=== PATIENT | female | born 1945 | race Caucasian/White ===

== ENCOUNTER 2017-04-19 10:40 | Inpatient (IN) | payer MEDICARE, OTHER ==
[2017-04-19] VITALS (10 sets, daily range): BP systolic 153–214; BP diastolic 60–112; PULSE 52–87; RESP 17–26; O2SAT 92–99
[~2017-04-19] VITALS: Ht 162.6 cm; Wt 78.7 kg
[~2017-04-19 10:40] MED LIST: ASPI81TA3 PO; CREST10T PO; LEVO75TA4 PO; LISI-567 PO; METO-272 PO; OMEP-113 PO
[2017-04-19] MEDS ORDERED: CYAN50008 PO (11:06)
[2017-04-19] MEDS ORDERED: LISI40TA PO (11:06)
[2017-04-19] MEDS ORDERED: POLY17PO6 PO (11:06)
[2017-04-19] MEDS ORDERED: CHOL200047 PO (11:06)
[2017-04-19] MEDS ORDERED: METF-495 PO (11:06)
[2017-04-19] MEDS ORDERED: FLUT15.88 NS (11:06)
--- NOTE | 2017-04-19 11:19 | NUR ---
ZECHARIAH signed by pt
[2017-04-19 11:34] LABS: BASOPHILS % (AUTO) 0.5 % (0-3); EOSINOPHILS % (AUTO) 2.3 % (0-5); MONOCYTES % (AUTO) 5.6 % (4-12); Mean Corpuscular Hemoglobin 29.6 pg (27.0-35.0); Mean Corpuscular Volume 88.4 fL (81-100); NEUTROPHILS % (AUTO) 38.4 % (40-74); Platelet Count 268 bil/L (150-400)
--- NOTE | 2017-04-19 11:34 | ED.REPORT ---
HPI-General Illness Date of Service Apr 19, 2017 ED Provider: Bhavesh Matson MD A 72 year old female with a history of CAD s/ p CABG (2010), type II diabetes mellitus, recurrent GI bleeds, hypertension, hypothyroidism, atrial fibrillation , and GERD presents to the ED via EMS complaining of N/V/D that began at 0900 this morning. Associated symptoms include generalized weakness, hematochezia, chills, diaphoresis, and abdominal burning. She reports similar symptoms previously but this episode is worse. She has been evaluated for her GI bleeds previously but a clear cause was not identified. Patient denies any SOB, chest pain, or focalized weakness. She was prescribed antibiotics for a bladder infection 3 weeks ago. Patient is not currently on Coumadin or Xarelto. She denies any recent travel or recent sick contacts. Nursing Notes Stated Complaint: NAUSEA,VOMITTING,DIARRHEA Chief Complaint: General Complaint Nursing Notes Reviewed: Yes Allergies: Coded Allergies: No Known Allergies (Verified , 04/19/17) Scheduled Aspirin Chew (Aspirin Chew) 81 Mg Tab.chew 81 MG PO DAILY Cholecalciferol (Vitamin D3) (Vitamin D3) 2,000 Unit Capsule 2,000 UNIT PO DAILY Cyanocobalamin (Vitamin B-12) (Vitamin B12) 5,000 Mcg Tab.rapdis 5,000 MCG PO DAILY Levothyroxine (Levothyroxine) 75 Mcg Tablet 75 MCG PO AM Lisinopril (Lisinopril) 40 Mg Tablet 40 MG PO DAILY Metformin ER (Metformin ER) 500 Mg Tablet 500 MG PO DAILYWD Metoprolol Succinate ER (Metoprolol Succinate ER) 50 Mg Tab.er.24h 50 MG PO AM Omeprazole (Omeprazole) 20 Mg Capsule.dr 20 MG PO DAILY Rosuvastatin Calcium (Crestor) 10 Mg Tablet 5 MG PO HS Scheduled PRN Fluticasone Propionate (Fluticasone Propionate) 50 Mcg/Actuation Russell.susp 15.8 ML NS PRN nasal congestion Polyethylene Glycol 3350 (Miralax) 17 Gm Powd.pack 17 GM PO DAILY PRN PRN For Constipation General Time Seen by MD: 11:33 Chief Complaint Vomiting Hx Obtained From: Patient Arrived By: Ambulance Sudden in Onset?: No Onset Occurred: 1 - 4 hours ago Symptom Duration: Since onset Location: : Abdomen Quality: Burning Radiation: : Does not radiate Severity: Current: Mild Severity: Maximum: Mild Associated with: Reports: Diaphoresis, Nausea, Vomiting Pertinent Negative: Pt denies other symptoms Recent Healthcare: No recent doctor visit, No recent hospitalization Past Medical History Past Medical History 1. CAD s/p 2V CABG in 07/[address] [facility] [address] Don 2. Diabetes mellitus type II, diet controlled 3. H/o elevated LFTs on atorvastatin 4. Osteoarthritis 5. Hypertension 6. Osteopenia 7. Mild aortic stenosis 8. Afib, paroxysmal 9. Anxiety/Depression 10. Hypothyroidism 11. GERD Past Surgical History Double bypass - three years ago Cholecystectomy Hysterectomy Cataract surgery Knee surgery Hysterectomy Family History Noncontributory Smoking History Never Smoker Social History Drug Use: Denies drug use Other Social History: Good social support, , Local resident Ambulatory Status Independent Review of Systems Full Review of Systems Constitutional: Reports: Chills, Weakness - generalized Respiratory: Denies: Shortness of breath Cardiovascular: Denies: Chest pain GI: Reports: Abdominal pain (burning), Diarrhea, Hematochezia, Nausea, Vomiting Skin: Reports Diaphoresis Neurologic: Reports: Lightheaded Complete sys rev & neg: except as marked. Physical Exam Nursing note and vitals reviewed. Constitutional: Well-developed, well-nourished. Not diaphoretic. Head: Normocephalic and atraumatic. Mouth/Throat: Mucous membranes dry. No oropharyngeal exudate. Eyes: EOM are normal. Pupils are equal, round, and reactive to light. Neck: Supple, no tracheal deviation. Cardiovascular: Normal rate, regular rhythm. Equal and intact distal pulses throughout. Pulmonary/Chest: Effort normal and breath sounds normal. No respiratory distress. Abdominal: Soft. No distension. Diffuse abdominal tenderness without rebound or guarding. Normal bowel sounds. Musculoskeletal: Range of motion grossly intact, moving all extremities. No edema appreciated. Neurological: AOx3. Grossly nonfocal exam. Strength and sensation intact and equal to bilateral upper and lower extremities. Skin: Warm and dry, no rashes or pallor appreciated. Psychiatric: Appropriate mood and affect. Behavior appears normal. Rectum: [employer] present. No external hemorrhoids. Minimal gross blood present. No masses in rectal vault. Occult heme positive. Vital Signs Vital Signs Date Time Temp Pulse Resp B/P Pulse Ox O2 Delivery O2 Flow Rate FiO2 04/19/17 16:19 75 19 173/69 92 Room Air 04/19/17 14:09 52 17 169/65 99 Room Air 04/19/17 12:34 67 18 167/60 98 Room Air 04/19/17 10:52 36.5 62 26 153/112 99 Room Air Initial VS: Reviewed Interpretation & Diagnostics Lab Results Interpretation Result Diagram: 04/19/17 1243 04/19/17 1243 Test 04/19/17 12:43 04/19/17 13:55 White Blood Count 12.3th/mm3 (3.8-10.1) Red Blood Count 4.46mil/mm3 (3.90-5.20) Hemoglobin 13.1g/dL (12.0-15.6) Hematocrit 40.2% (35.0-46.0) Mean Corpuscular Volume 90.1fL (81-100) Mean Corpuscular Hemoglobin 29.4pg (27.0-35.0) Mean Corpuscular Hemoglobin Concent 32.6% (32.0-37.0) Red Cell Distribution Width 13.3% (12.3-15.4) Platelet Count 177bil/L (150-400) Neutrophils (%) (Auto) 81.2% (40-74) Lymphocytes (%) (Auto) 11.1% (14-46) Monocytes (%) (Auto) 6.4% (4-12) Eosinophils (%) (Auto) 0.8% (0-5) Basophils (%) (Auto) 0.2% (0-3) Prothrombin Time 10.4sec (8.1-12.5) Prothromb Time International Ratio 0.97ratio Sodium Level 140mEq/L (134-144) Potassium Level 4.5mEq/L (3.5-5.2) Chloride Level 107mEq/L (97-108) Carbon Dioxide Level 17mmol/L (18-29) Blood Urea Nitrogen 16mg/dL (8-27) Creatinine 0.83mg/dL (0.57-1.00) Estimat Glomerular Filtration Rate 97mL/min (>59) Glucose Level 121mg/dL (60-99) Lactic Acid Level 3.0mmol/L (0.4-2.0) Calcium Level 9.3mg/dL (8.5-10.1) Magnesium Level 1.8mg/dL (1.6-2.6) Total Bilirubin 0.4mg/dL (0.0-1.2) Aspartate Amino Transf (AST/SGOT) 19U/L (0-50) Alanine Aminotransferase (ALT/SGPT) 13U/L (0-32) Alkaline Phosphatase 108U/L (25-165) Total Protein 6.9g/dL (6.4-8.4) Albumin 3.8g/dL (3.4-5.0) Lipase 68U/L (13-60) Urine Color Yellow (YELLOW) Urine Appearance Clear (CLEAR,HAZY) Urine pH 5.5 (5.0-8.0) Urine Specific [place] <1.005 (1.003-1.035) Urine Protein Negativemg/dL (NEG,TRACE) Urine Glucose (UA) Negativemg/dL (NEGATIVE) Urine Ketones Negativemg/dL (NEGATIVE) Urine Occult Blood Trace (NEGATIVE) Urine Nitrite Negative (NEGATIVE) Urine Bilirubin Negative (NEGATIVE) Urine Urobilinogen Normalmg/dL (NORMAL) Urine Leukocyte Esterase Negative (NEGATIVE) Urine RBC 0-2/hpf (0-2) Urine WBC 0-5/hpf (0-5) Urine Epithelial Cells Few/hpf (NONE-MOD) Urine Crystals None seen (NONE SEEN) Urine Bacteria Few/hpf (NONE-FEW) Urine Hyaline Casts None/lpf (NONE) Urine Granular Casts None seen (NONE SEEN) Urine Waxy Casts None seen (NONE SEEN) Urine Red Blood Cell Casts None seen (NONE SEEN) Urine White Blood Cell Casts None seen (NONE SEEN) Urine Mucus None seen (None Seen) Urine Trichomonas None seen (NONE SEEN) Urine Yeast None (NONE SEEN) Urinalysis Comment None Urine Culture Reflexed Not indicated ECG Interpretation ECG Interpretation: Sinus Rhythm Rate 66 Probable left atrial enlargement Time: 14:01 Interpreted by: ED physician Normal ECG Interpretation: No change from prior ECGs (11/22/14) X-Ray Abdominal Interpretation IMPRESSION: The appearance of the bowel gas pattern is abnormal but more consistent with diarrhea evaluate for obstruction. No dilated loops are seen. Dictated by: Jimmy Arnett M.D. on 04/19/2017 at 13:23 Interpretation / Wet Read by: Interpret - Radiologist CT Abd / Pelvis Interpretation IMPRESSION: 1. Abnormal transverse and descending colon consistent with colitis. There are scattered diverticula but no diverticulitis. Dictated by: Jimmy Arnett M.D. on 04/19/2017 at 15:09 Study type: Abdominal CT IV contrast, Abdom CT oral contrast Interpretation / Wet Read by: Interpret - Radiologist Re-Eval/Medical Decision Med Decision/Clinical Course In summary, 72-year-old female with a complex past medical history presenting to the ED for evaluation of vomiting and diarrhea since earlier this morning, now with bright red blood per rectum. Hemoglobin has dropped while in the ED from 14.8 to 13.1, though pressures ok. She does have an elevated lactic acid, however pain does not seem to be postprandial, pain is mild does not seem consistent with mesenteric ischemia at this time, though she does have a history of atrial fibrillation. CT scan shows colitis without any other clear etiology for the patient's pain. A C. difficile PCR was sent and pending. While she does have a strong cardiac history, she is not complaining of any chest pain, chest pressure, or dyspnea whatsoever. Given intractable symptoms, bright red blood per rectum, and mild drop in hemoglobin (which may or may not be significant) plan admission for further evaluation and management. Patient agreeable to the plan as stated, no further questions. Time of Eval: 13:59 Re-Evaluation/Progress Note: She is currently complaining of abdominal pain but denies any SOB or chest pain. Consultation #1: Referral / Consult Name: Robb Loyola MD Call Returned at: 13:50 Cooler Man: Agrees with eval, Agrees with plan Note: GI Consultation #2: Referral / Consult Name: Robb Loyola MD Call Returned at: 16:10 Cooler Man: Will see patient, Agrees with eval, Agrees with plan Note: Agrees to consult Consultation #3: Referral / Consult Name: Carol Harris DO Consulted With: Hospitalist Call Returned at: 16:34 Cooler Man: Will see patient, Agrees with eval, Agrees with plan, Accepts admit Counseled Regarding: Diagnosis, Lab results, Need for admission Discharge & Departure Primary Impression: Colitis Additional Impression: Lower GI bleed Disposition: ADMITTED TO HOSPITAL Discharge Condition All VS Reviewed: Yes Condition: Stable Referrals: Melissa Michaels (PCP) Scribe Attestation Portions of this note were transcribed by Flo Drake. I, Dr. Matson personally performed the history, physical exam and medical decision-making; I reviewed and confirmed the accuracy of the information in the transcribed note. Signed by: Harman Vasques, 04/19/17 [id number]. copies to: Melissa Michaels William B MD Apr 19, 2017 11:34 FLO DARKE Apr 19, 2017 11:49
[2017-04-19 12:08] LABS: Magnesium 2.1 mg/dL (1.6-2.6)
[2017-04-19] MEDS ORDERED: 0.9% Sodium Chloride 1,000 ML IV ONE ×3 (12:16→19:10)
[2017-04-19] MEDS: Ondansetron 2 mg/mL 2 mL Inj IVPUSH PRN ×4 (12:33→21:07)
[2017-04-19] MEDS: HYDROmorphone 0.5 mg/0.5 mL iSecure Syringe IVPUSH PRN ×3 (12:33→16:16)
[2017-04-19 12:56] LABS: BASOPHILS % (AUTO) 0.2 % (0-3); EOSINOPHILS % (AUTO) 0.8 % (0-5); MONOCYTES % (AUTO) 6.4 % (4-12); Mean Corpuscular Hemoglobin 29.4 pg (27.0-35.0); Mean Corpuscular Volume 90.1 fL (81-100); NEUTROPHILS % (AUTO) 81.2 % (40-74); Platelet Count 177 bil/L (150-400)
[2017-04-19 13:22] LABS: INR 0.97 ratio
--- NOTE | 2017-04-19 13:26 | DRSVH ---
PROCEDURE: X-RAY ACUTE ABDOMINAL SERIES ([id number]) INDICATIONS: NAUSEA, VOMITTING, DIARRHEA TECHNIQUE: One view chest and two views of the abdomen were acquired. COMPARISON: None. FINDINGS: Surgical changes and devices: Vascular clips indicate previous cholecystectomy. Sternotomy are presen t suggesting CABG procedure. Chest: Lungs are clear. Heart size is normal. No pleural effusions. No pneumoperitoneum. Abdomen: Bowel gas pattern shows some air fluid levels in small and large bowel but no dilated loops . No suspicious calcifications. Visualized solid organ contours appear normal. Bones: No suspicious bony lesions. IMPRESSION: The appearance of the bowel gas pattern is abnormal but more consistent with diarrhea geni luate for obstruction. No dilated loops are seen. Dictated by: Jimmy Arnett M.D. on 04/19/2017 at 13:23 Approved by: Jimmy Arnett M.D. on 04/19/2017 at 13:24
[2017-04-19 13:28] LABS: Magnesium 1.8 mg/dL (1.6-2.6)
[2017-04-19 14:13] LABS: APPEARANCE,URINE CLEAR (CLEAR,HAZY); COLOR,URINE YELLOW (YELLOW); OCCULT BLOOD,URINE TRACE (NEGATIVE); PH,URINE 5.5 (5.0-8.0); UROBILINOGEN,URINE NORMAL (NORMAL)
--- NOTE | 2017-04-19 15:23 | DRSVH ---
PROCEDURE: CT ABDOMEN AND PELVIS WITH CONTRAST ([id number]) INDICATIONS: vomiting, BRBPR TECHNIQUE: After the administration of intravenous contrast, 5 mm thick sections acquired from the diaphragm to the symphysis. 5 mm coronal and sagittal reformats were acquired. For radiation dose reduction, the following was used: automated exposure control, adjustment of mA and/or kV according to patient siz e. COMPARISON: [facility], CT, ABD/PELVIS W/CON (PN), 08/16/2015, 14:07. FINDINGS: Image quality: Excellent. ABDOMEN: Lung bases: Lung bases are clear. Heart size is normal. Solid organs: Liver and spleen are normal in size and enhancement. Gallbladder has been removed. B iliary system is non dilated. Pancreas enhances normally. No adrenal nodules. Kidneys demonstrate normal size and enhancement, without hydronephrosis. Peritoneum and bowel: Stomach and small bowel are considered normal. Colon is abnormal. Terminal ile um and ascending colon are considered normal in the proximal transverse colon is a short segment of c olon dilatation which is suspected to be peristaltic wave.. Beyond this area all of the colon is foun d to be become thicker and in the descending colon there is robyn-colonic stranding consistent with in flammation/colitis. No obstruction is seen. No free fluid or air. There is a normal appendix. Nodes and vessels: No retroperitoneal or mesenteric adenopathy by size criteria. Aorta and inferior vena cava are normal in size. Miscellaneous: There is a small fatty umbilical hernia. PELVIS: Genitourinary: Bladder wall thickness is normal. Uterus is soft and he removed. Miscellaneous: No inguinal hernias or adenopathy. Bones: No suspicious bony lesions. No vertebral body compression fractures. IMPRESSION: 1. Abnormal transverse and descending colon consistent with colitis. There are scattered diverticula but no diverticulitis. Dictated by: Jimmy Arnett M.D. on 04/19/2017 at 15:09 Approved by: Jimmy Arnett M.D. on 04/19/2017 at 15:21
[2017-04-19] MEDS ORDERED: OMEP20CA11 PO (16:39)
[2017-04-19] MEDS ORDERED: Alum-Mag Hydrox-Simeth 30 mL Suspension PO PRN (17:10)
[2017-04-19] MEDS: 0.9% Sodium Chloride 1,000 ML IV SCH ×2 (17:57→18:25)
--- NOTE | 2017-04-19 17:59 | PCM.HPMED ---
Subjective Date of Service Apr 19, 2017 Primary Provider: Admitting Physician: Carol Harris DO Primary Care Physician: Melissa Michaels Attending Physician: Carol Harris DO Admit Status: From the Emergency Department Chief Complaint: Bright red blood per rectum History of Present Illness: This is a pleasant 72-year-old female with past medical history of diabetes hypothyroidism, hyperlipidemia, atrial fibrillation, GERD, CAD status post CABG , osteoarthritis mild aortic stenosis, anxiety, depression is presenting today with rectal bleeding that has been ongoing since then 9 AM this morning she says that she was sitting on the toilet and she did not even know what was going on, she did not look at the toilet as she became diaphoretic. EMT came and got her she does not know if there was any blood at that time. She is describing abdominal cramping that is going across her belly button into her sigmoid area/left lower quadrant. She says that the pain is intermittent and vague burning in nature. And also crampy. She says that she had similar episode a year ago and at which time she was admitted to [facility] but she did not have as much blood at that time. She denied any sick contacts or having history of C. difficile. She says ever since he came to the hospital she had at least 4 bloody stools and she says now she is having clots in her bowel movements. She was very nStates auseated but currently not having emesis because they gave her medication the ER. She denies hematemesis. She says that she is feeling weak but not dizzy. She states that her atrial fibrillation happened once only after her heart surgery back in 2010 has resolved since then and she did not have to be anticoagulated. She has taken her BP medications this morning but feels that as she threw up so much they may not have remained in her system In the ER lactic acid was elevated at [address] with contrast showed transverse and descending colon colitis as well as diverticulosis, abdominal x- ray showed diarrhea, and a Echo from November 2014 showed 60% to 70% ejection fraction, left atrial dilation that is considered to be moderate. In the ER white count is elevated at 12.3 EKG showed left atrial dilation. Lipase is slightly elevated at 68 urine was negative for infection. Hemoglobin is 13.1. patient states that she had a colonoscopy in our system 5-6 years ago she was told she had polyps but that no other problems were found. OF note, patient recently had a bladder infection that was treated with antibiotics. She denies recent sudden weight loss/weight gain 2013 Colonoscopy [facility] record is as below: 1. Moderate diverticulosis sigmoid colon. 2. Small internal hemorrhoids. 3. History of tubular adenoma and transverse colon. 4. Repeat surveillance colonoscopy to be considered in five years. When she arrived on the [facility] floor, she was hypertensive SBP>200, ZYV=833. Review of Systems: Gen.: No weight gain patient not has been having fevers and malaise, recent bladder infection for which she was given abx Eyes: no new onset visual disturbances or blurring vision HEENT: No nose/throat drainage, no pain in ears or throat, no hearing loss Lymph: No lymph nodes noted Cardiac: No chest pain, orthopnea, PND, palpitations , pedal edema or dyspnea on exertion Pulmonary: Denies wheezing or bringing up of sputum worsening dyspnea and cough , left-sided chest pain GI: No anorexia positive for nausea vomiting, positive for blood in the stool, negative for hematemesis : no dysuria hematuria urinary frequency or decrease in urine output Musculoskeletal: Joint swelling no joint pain no new muscle aches or back pain Neuro: No syncope, seizures no loss of consciousness no new focal weakness, numbness or tingling Psychiatric: New new anxiety insomnia or depression Endocrine: Patient is endorsing feeling feeling hypothermic Hematology: No lymphadenopathy, several episodes of hematochezia as above skin: No new rashes, stasis dermatitis Allergies Coded Allergies: No Known Allergies (Verified , 04/19/17) Home Medications Aspirin, levothyroxine, metformin, metoprolol, Lopressor, as well as statin PMH Remarkable for diabetes, hypothyroidism, atrial fibrillation that has resolved, hyperlipidemia, GERD, CAD status post CABG, osteoarthritis, mild aortic stenosis , anxiety depression Surgical History Remarkable for double bypass, cholecystectomy, hysterectomy, cataracts, knee Family History Mother with heart disease, carotid disease, stroke Dad with lung cancer, bleeding in brain Social History Hx Alcohol Use: Yes (rarely) Hx Substance Use: No Hx Tobacco Use: No Smoking Status: Never Smoker Living Arrangement: with Family Additional Information Family work-related [employer] Exam Vital Signs Vital Sign - Last Date Time Temp Pulse Resp B/P Pulse Ox O2 Delivery O2 Flow Rate FiO2 04/19/17 17:53 36.8 76 18 208/77 97 Room Air Exam General: NAD, laying in bed, some what anxious female HEENT: NCAT Eyes: [place] conjunctivae. No ptosis, PERRL Neck: No masses, trachea midline, no thyromegaly Lungs: CTA with normal respiratory effort, no crackles or wheezes CV: RRR, no murmurs/rubs/gallops, normal PMI GI: Soft, non-tender with no hepatosplenomegaly MSK: Normal gait and station, no digital cyanosis Skin: Warm and dry. No rash, lesions or ulcers Psych: A&O X3, with appropriate affect Lab and Diagnostics Result Diagram: 04/19/17 1243 04/19/17 1243 X-Rays, CTs and MRIs PROCEDURE: CT ABDOMEN AND PELVIS WITH CONTRAST ([id number]) INDICATIONS: vomiting, BRBPR IMPRESSION: 1. Abnormal transverse and descending colon consistent with colitis. There are scattered diverticula but no diverticulitis. Dictated by: Jimmy Arnett M.D. on 04/19/2017 at 15:09 Approved by: Jimmy Arnett M.D. on 04/19/2017 at 15:21 PROCEDURE: X-RAY ACUTE ABDOMINAL SERIES ([id number]) INDICATIONS: NAUSEA, VOMITTING, DIARRHEA IMPRESSION: The appearance of the bowel gas pattern is abnormal but more consistent with diarrhea evaluate for obstruction. No dilated loops are seen. Assessment & Plan Assessment # Abdominal Pain, acute POA: Pancolitis (infectious, inflammatory) vs mesenteric ischemia vs. malignancy -- cipro andf flagy IV antibiotics; -- stool PCR test -- 1 L bolus now and 125 cc/hr -- Morphine 4 mg IV Q3HPRN -- Zofran IV for nausea control # Lower GI bleed, acute POA: -- Type and screen crossmatch 2 units -- Every 3 hours H&H 5 -- She gave a verbal blood consent -- Consult GI Dr. Chopra, he is some is aware of her case per ER doc: Discussed case with him, he feels we should r/o colitis (zee c diff as she ahs had exposure to abx) and then mesenteric ischemia. REcommends more fluids and abx # Lactic acidosis metabolic acidosis, POA -- Likely due to sepsis vs acute bleed versus metformin -- metformin is held (she had a contrast CT anyway) -- trend lactic acid -- 1L bolus fluids # Hypertensive Urgency, POA -- Metoprolol 5mg IV --, Enalapril IV PRN # Diabetes mellitus type 2, chronic active -- Hold metformin -- Low-dose sliding scale --Every 6 hours glucose checks # Hypertension, chronic active -- Patient is hypertensive upon arriving to floor 200/100 -- She probably has not kept her meds down -- She is given a one-time dose of 5 mg of IV metoprolol -- Enalapril when necessary every 6 hours with parameters (180, 100) # GERD, chronic active -- IV Protonix 40 mg daily # A. fib, chronic resolved -- Probably paroxysmal based on her echo record -- Continue home medication metoprolol -- Cont Metoprolol via IV -- Telemonitoring # Hyperlipidemia, chronic active -- We will hold her home statin # Hypothyroidism, chronic active -- Hold levothyroxine for now # CAD status post CABG, chronic active -- Hold aspirin, statin Pain Evaluation: Pain not Controlled GI Prophylaxis: Proton Pump Inhibitor VTE Prophylaxis Indicated: Contraindicated Resuscitation Status: CPR: Attempt Resuscitation ( and daughter are alternate decision makers) Time spent 40 minutes Carol Harris DO Apr 19, 2017 17:58
[2017-04-19] MEDS ORDERED: Polyethylene Glycol (PEG) 17 Gm Powder PO PRN (18:00)
[2017-04-19] MEDS: Sodium Chloride LOK Flush 10 mL Syringe IVFLUSH SCH (18:00)
[2017-04-19] MEDS ORDERED: Dextrose 10% 250 ML IV PRN (18:15)
[2017-04-19] MEDS ORDERED: Glucose 40% Oral Gel 15 Gm Tube PO PRN (18:15)
[2017-04-19] MEDS ORDERED: MeTOProlol 1 mg/mL 5 mL Inj IVPUSH ONE (18:15)
--- NOTE | 2017-04-19 19:27 | NUR ---
Admit to [facility] Pt arrived on [facility] from ED at 1745 hrs. Alert and oriented x 3. HILARIO and able to ambulate. Nonslip socks put on pt for safety. Bilateral antecubital PIVs patent and asymptomatic. Pt c/o lower abdominal pain. Personal possessions with pt. Family at bedside. Pt's BP upon arrival was 208/77. Hospitalist notified and she ordered telemetry and 5 mg IVP Metroprolol. Beta gordon and IVP morphine administered for pain.
[2017-04-19] MEDS: metroNIDAZOLE Inj 500 MG in IV Premix 1 EACH IV SCH (20:43)
[2017-04-19] MEDS: Ciprofloxacin Inj 400 MG in IV Premix 1 EACH IV SCH (21:44)
[2017-04-19] MEDS: Insulin LISPRO 300 Unit/3 mL Inj SUBQ SCH (21:45)
[2017-04-20] VITALS (8 sets, daily range): BP systolic 157–188; BP diastolic 62–72; PULSE 68–85; RESP 16–18; O2SAT 93–97
[2017-04-20] MEDS: Sodium Chloride LOK Flush 10 mL Syringe IVFLUSH SCH ×3 (00:30→16:30)
--- NOTE | 2017-04-20 02:20 | CONS ---
[address] [address] CONSULTATION REPORT PATIENT: CELSA IGNACIO : 1945 MR#: [id number] ADMIT: 04/19/2017 JOB ID: [id number] DATE OF SERVICE: PHYSICIAN REQUESTING CONSULTATION: Bhavesh Matson MD, ED physician. REASON FOR CONSULTATION: Rectal bleeding and possible colitis. HISTORY OF PRESENTING ILLNESS: The patient is a very pleasant, 72-year-old woman, with a history of coronary artery disease, for which she underwent CABG back in 2000. She also has type 2 diabetes, hypertension, hypothyroidism, atrial fibrillation, and gastroesophageal reflux, who was apparently in her usual state of health up until this morning, when following a meal that consisted of bananas and yogurt, she began having borborygmi, followed by abdominal cramping. She then went to the bathroom where she had multiple bowel movements. She did not see her initial bowel movements at home. However, she was experiencing generalized weakness, chills, diaphoresis and abdominal cramping. EMS had to be called, and the patient was then brought to the emergency department, where she had rectal bleeding that was witnessed by ED staff. In the emergency department, her vital signs revealed that she was afebrile with temperature of 36.5, her pulse was 62, her blood pressure was 153/112, respiratory rate 26, O2 saturation of 99% on room air. She then underwent a CT of the abdomen which showed that beyond the area of the transverse colon, there was thickening noted in the distal transverse colon and descending colon. She was also noted to have a scattered diverticula, but no evidence of diverticulitis. Her initial CBC revealed a white blood cell count of 12.6, hemoglobin of 14.8, hematocrit of 44, platelet count 268, with 38% neutrophils and 52% lymphocytes. A subsequent repeat of her CBC an hour later revealed a white blood cell count of 12.3, hemoglobin of 13.1, hematocrit of 40.2, platelet count of 177. Then, subsequent repeated hemoglobin and hematocrit shows 12.7 and 37.7. Her initial BMP was normal except for a mildly elevated glucose of 208. Her LFTs were normal. Subsequent repeat of her BNP showed an hour later that her bicarb was 17 and her lactic acid was 3. Upon my interview with the patient, she states that she had a similar episode about a year ago, but at that time, did not have the amount of bleeding that she had today. She described the bleeding only as large volume. Previously one year ago, she reported just spotting of blood from her rectum. She reports having had a normal colonoscopy within the last five years, which was done at [facility]. She does also report having undergone an upper endoscopy for GERD, and reports having had manometry studies which showed evidence of GERD, and since then has been on Prilosec and this has controlled her GERD. Within the last nine weeks, she reports having been on antibiotics for UTIs on two separate occasions. She does consume well water, but states that this has been tested, and there has been no evidence of infection. There are no other sick contacts in her family. She denies any recent travel. She does have dogs at home but states that they have been healthy. She denies starting any new medications or trying any herbal products. PAST MEDICAL HISTORY: Significant for coronary artery disease, type 2 diabetes, osteoarthritis, hypertension, osteopenia, mild aortic stenosis, paroxysmal atrial fibrillation, anxiety, depression, hypothyroidism, and gastroesophageal reflux. PAST SURGICAL HISTORY: Includes coronary bypass grafting in 2010, cholecystectomy, hysterectomy, cataract surgery, knee surgery, and hysterectomy. FAMILY HISTORY: She denies any family history of colon cancer, inflammatory bowel disease or any other chronic GI illnesses or liver disease. SOCIAL HISTORY: She is . Lives in the [place] area. Is retired from the [employer]. She denies any daily alcohol abuse or tobacco use. HOME MEDICATIONS: Include: 1. Aspirin 81 mg daily. 2. Vitamin D3. 3. Vitamin B12. 4. Levothyroxine. 5. Lisinopril. 6. Metformin. 7. Omeprazole 20 mg daily. 8. Rosuvastatin. 9. Calcium. ALLERGIES: She has no known drug allergies. REVIEW OF SYSTEMS: A 10-point review of systems is negative except as mentioned in the HPI. PHYSICAL EXAMINATION: Her temperature is 36.8, her pulse is 76, her blood pressure is 208/77, respiratory rate is 18, O2 saturation 97% on room air. Generally, she did not appear to be in any distress, though she has received morphine for pain. She is oriented to person, place, and time. Answers questions appropriately. HEENT: No pallor. No icterus. Oropharynx is clear. Chest exam is clear to auscultation bilaterally. Cardiovascular exam: S1, S2 heard. Abdomen: She is tender in the left lower quadrant, extending up into the left upper quadrant. However, she has no epigastric tenderness, right upper quadrant tenderness or right lower quadrant tenderness. Bowel sounds are appreciated. Her abdomen is nondistended. Extremities: Without edema. LABORATORY DATA: As discussed above. Imaging as discussed above. ASSESSMENT/PLAN: A 72-year-old woman presenting with acute onset abdominal pain associated with rectal bleeding and CT findings with colitis involving the distal transverse and descending colon. The differential diagnosis here includes possible Clostridium difficile colitis considering her recent antibiotic exposure and therefore, would check GI stool PCR and recommend starting empiric Flagyl. Also in the differential, with her history of paroxysmal atrial fibrillation and heart disease, ischemic colitis is also a possibility, and therefore, would continue supportive care, serial abdominal exams, follow H and H closely. Will add fluoroquinolones for antibiotic coverage in addition to the Flagyl. If, however, there is no improvement in her clinical course, we may need to proceed with a flexible sigmoidoscopy to evaluate thickened colon and rectal bleeding. Also in the differential, maybe the possibility of inflammatory bowel disease, and less likely, this represents neoplasm. In the meantime, would continue n.p.o. status, IV hydration, follow Is and Os closely. Follow H and H closely, as well. Type and screen. Ensure the patient has two peripheral IVs. Thank you for allowing me to participate in this patient's care. If you have any further questions, please do not hesitate to contact me.
[2017-04-20] MEDS: 0.9% Sodium Chloride 1,000 ML IV SCH ×5 (04:25→18:13)
--- NOTE | 2017-04-20 06:26 | NUR ---
HTN/Pain Pt reports abdominal pain/cramping; given morphine IV and zofran this shift. At start of shift SBP remains above 200, IV vasotec given and SBP slowly drops to below 180, med is available Q6 and BP will be monitored. No further BM this shift, no rectal blood. Pt is voiding yellow urine, reporting abdominal cramps. No N/V at this time. Care continues. IV infusing 125 ml/h NS into R AC. L AC saline locked. Care continues
[2017-04-20 06:55] LABS: BASOPHILS % (AUTO) 0.1 % (0-3); EOSINOPHILS % (AUTO) 0.7 % (0-5); MONOCYTES % (AUTO) 8.9 % (4-12); Mean Corpuscular Volume 88.1 fL (81-100); NEUTROPHILS % (AUTO) 77.1 % (40-74); Platelet Count 153 bil/L (150-400)
[2017-04-20] MEDS: Pantoprazole 4 mg/mL 10 mL Inj IVPUSH SCH (07:49)
[2017-04-20] MEDS: Ciprofloxacin Inj 400 MG in IV Premix 1 EACH IV SCH ×2 (07:49→21:41)
[2017-04-20] MEDS: Insulin LISPRO 300 Unit/3 mL Inj SUBQ SCH ×4 (08:15→22:00)
[2017-04-20] MEDS: metroNIDAZOLE Inj 500 MG in IV Premix 1 EACH IV SCH ×2 (09:42→17:57)
--- NOTE | 2017-04-20 09:53 | NUR ---
GI Pt had a dark red stool this a.m. Specimen sent to lab for GI-PCR. Care continues.
[2017-04-20] MEDS: Lisinopril 40 Tablet PO SCH (10:27)
[2017-04-20] MEDS: Ondansetron 2 mg/mL 2 mL Inj IVPUSH PRN ×5 (10:43→23:09)
--- NOTE | 2017-04-20 13:00 | NUR ---
Nausea / Pain Pt c/o nausea this a.m. No vomiting. Administered 4 mg IVP Zofran. Pt reported that this helped and nausea was resolved. At the same time pt was having increased cramping and pain in her left lower quadrant that was 7/10. Administered 4 mg IVP morphine. Pt reported that morphine helped and she is resting comfortably now.
[2017-04-20] MEDS ORDERED: fentaNYL-PF 50 mCg/mL 2 mL Inj IVPUSH PRN (15:10)
--- NOTE | 2017-04-20 15:45 | PCM.PNMED ---
Subjective Date of Service Apr 20, 2017 Subjective Continues to have nausea and abdominal cramping, also bright red blood per rectum Exam Vital Signs Vital Sign - Last Date Time Temp Pulse Resp B/P Pulse Ox O2 Delivery O2 Flow Rate FiO2 04/20/17 14:03 37.5 77 18 165/62 95 Room Air Intake and Output 04/19/17 04/19/17 04/20/17 Cumulative From/Thru 15:00 23:00 07:00 04/19/17 10:52 - 04/20/17 05:56 Intake Total 2000 ml 1000 ml 1248 ml 4248 ml Output Total 1050 ml 1050 ml Balance 2000 ml 1000 ml 198 ml 3198 ml Intake Oral 0 ml 0 ml IV Total 2000 ml 1000 ml 1248 ml 4248 ml Output Urine Total 1050 ml 1050 ml Exam General: Alert and oriented, no acute distress Heart: Regular Lungs: Clear anteriorly and laterally Abdomen: Soft, bowel tones are present, tender to light palpation in the left mid abdomen Extremities: No pedal edema IVs and Medications Medications Reviewed: Medications were reviewed in detail Lab and Diagnostics Result Diagram: 04/20/17 0643 04/20/17 0643 X-Rays, CTs and MRIs PROCEDURE: CT ABDOMEN AND PELVIS WITH CONTRAST ([id number]) INDICATIONS: vomiting, BRBPR IMPRESSION: 1. Abnormal transverse and descending colon consistent with colitis. There are scattered diverticula but no diverticulitis. Dictated by: Jimmy Arnett M.D. on 04/19/2017 at 15:09 Approved by: Jimmy Arnett M.D. on 04/19/2017 at 15:21 PROCEDURE: X-RAY ACUTE ABDOMINAL SERIES ([id number]) INDICATIONS: NAUSEA, VOMITTING, DIARRHEA IMPRESSION: The appearance of the bowel gas pattern is abnormal but more consistent with diarrhea evaluate for obstruction. No dilated loops are seen. Assessment & Plan Assessment # Abdominal Pain, acute POA: Pancolitis (infectious, inflammatory) vs mesenteric ischemia vs. malignancy -- cipro andf flagy IV antibiotics; -- stool PCR test negative -- 1 L bolus initially and now 100 cc/hr NS -- Morphine 4 mg IV Q3HPRN -- Zofran IV for nausea control -- Has been seen today by GI and surgery, no notes available yet but nurse reports she will have flex sig shortly # Lower GI bleed, acute POA: -- Type and screen crossmatch 2 units -- Every 3 hours H&H 5 -- She gave a verbal blood consent -- Hgb has dropped from 14.8 on admit yesterday to 11.9 today -- as above has been seen today by GI and surgery, no notes available yet but nurse reports she will have flex sig shortly # Lactic acidosis metabolic acidosis, POA -- Likely due to sepsis vs acute bleed versus metformin -- metformin is held (she had a contrast CT anyway) -- 1L bolus then IVF with NS # Hypertensive Urgency, POA -- Metoprolol 5mg IV --, Enalapril IV PRN - dose last molina for SBP 200's per nurse's note -- SBP today 160s-180s # Diabetes mellitus type 2, chronic active -- Hold metformin -- Low-dose sliding scale --Every 6 hours glucose checks # Hypertension, chronic active -- Patient is hypertensive upon arriving to floor 200/100 -- She probably has not kept her meds down -- She is given a one-time dose of 5 mg of IV metoprolol -- Enalapril when necessary every 6 hours with parameters (180, 100) # GERD, chronic active -- IV Protonix 40 mg daily # A. fib, chronic resolved -- Probably paroxysmal based on her echo record -- Continue home medication metoprolol -- Cont Metoprolol via IV -- Telemonitoring # Hyperlipidemia, chronic active -- We will hold her home statin # Hypothyroidism, chronic active -- Hold levothyroxine for now # CAD status post CABG, chronic active -- Hold aspirin, statin GI Prophylaxis: Proton Pump Inhibitor VTE Mechanical Devices: Intermittant Pneumatic CD Resuscitation Status: CPR: Attempt Resuscitation ( and daughter are alternate decision makers) Arlen Rodriguez MD Apr 20, 2017 15:45
--- NOTE | 2017-04-20 16:12 | CONS ---
[address] [address] CONSULTATION REPORT PATIENT: CELSA IGNACIO : 1945 MR#: [id number] ADMIT: 04/19/2017 JOB ID: [id number] DATE OF SERVICE: CHIEF COMPLAINT: Colitis on CT scan and abdominal pain. HISTORY OF PRESENT ILLNESS: The patient is a 72-year-old female, who presented to the emergency department yesterday due to abdominal pain and cramping, diarrhea and nausea, vomiting. The patient was in her usual state of health until yesterday morning, when she was on the potty, when she developed a sudden onset of cramping abdominal pain and diarrhea. This was associated with nausea, vomiting, and also bright red blood per rectum. The patient was diaphoretic and hypotensive. Her called the paramedics and brought her to the hospital. The patient reports that she has had similar episodes of abdominal cramping and diarrhea many times before but never to this degree of severity, and she has never had this much of an amount of rectal bleeding. The patient has had extensive workup previously at [facility]. The patient does report a history of using antibiotics for bladder infection approximately three weeks ago. The patient has had previous GI workup and most recently at [facility] had a colonoscopy in February 2013. Workup in the emergency department yesterday included a CT scan that suggests transverse colon and descending colon colitis. There is no free fluid or free air. The appendix was normal. Due to the ongoing abdominal pain, I was consulted by Dr. Loyola of the GI service. Since her admission to the hospital, her abdominal pain seems to be slightly different, it used to be more cramping and now it is just a type of soreness. The pain is described to be slightly better. PAST MEDICAL HISTORY: Includes coronary artery disease, status post a CABG in 2010, borderline diabetes, recurrent GI bleeds, hypertension, hypothyroidism, history of atrial fibrillation, GERD, osteoarthritis, cholecystectomy, hysterectomy, cataract surgery. Right knee surgery, anxiety and depression. MEDICATION: At this time, includes ciprofloxacin and Flagyl. Her home medications include baby aspirin, vitamins, levothyroxine, lisinopril, metformin, metoprolol, omeprazole, MiraLAX, and Crestor. ALLERGIES: None. SOCIAL HISTORY: The patient is . She has two children. She lives in [place]. She is retired from the school district. FAMILY HISTORY: Positive for coronary artery disease, stroke and diabetes. REVIEW OF SYSTEMS: Positive for the crampy abdominal pain, bright red blood per rectum, weakness, diaphoresis, nausea, vomiting. PHYSICAL EXAMINATION: The patient is currently in the hospital bed in no acute distress. Her BMI is 28.8. Her temperature is 37.5, blood pressure 165/62. Pulse is 77, respirations 18. Head is normocephalic, atraumatic. There is no scleral icterus. The patient wears glasses. Neck is supple. There is no cervical adenopathy. Heart is in regular rate. It is not irregular. Lungs are clear bilaterally. Abdomen is slightly obese, but it is nontender on the right side and only mildly tender on palpation to the left lateral abdomen and also left lower quadrant. There are no peritoneal signs, and there is no rebound at this time. Extremities show no clubbing and no cyanosis. Neurologically, patient is awake and alert and answers questions appropriately. She is nonfocal. LABORATORY EXAMINATION: Yesterday, showed a white blood count of 12.6, and on repeat this morning, it has increased to 22.1. Hematocrit 36.2, platelet count is 153. Sodium is 138, potassium 4.4, BUN of 12, creatinine of 0.75. Her lactic acid has gone from 3.0 down to 2.5. Her total bilirubin is 0.4. Her lipase was 102 and it has come down to 68. A CT scan report from yesterday shows abnormal distal transverse colon and descending colon colitis. There are scattered diverticula but no diverticulitis. There is no free fluid or air. There is a normal appendix. There is a small fatty umbilical hernia. ASSESSMENT: This is a 72-year-old female, who presented with a one-day history of sudden onset of crampy abdominal pain, nausea, vomiting, and blood per rectum. CT scan suggests distal transverse colon and descending colitis. The patient has a history of antibiotic usage approximately three weeks ago for bladder infection. I believe her Clostridium difficile toxin result is negative. Stool studies have all been negative so far. This may represent an episode of ischemic colitis. The patient should continue with IV antibiotics and supportive care for now. I believe GI is planning on performing a flexible sigmoidoscopy later today. The patient's abdominal exam is not worrisome for peritonitis at this time. We will follow the patient along with you. DUARTE
--- NOTE | 2017-04-20 17:46 | ENDO ---
[address] [address] ENDOSCOPY PROCEDURE PATIENT: CELSA IGNACIO : 1945 MR#: [id number] ADMIT: 04/19/2017 JOB ID: [id number] DATE: 04/20/2017 PROCEDURE: Flexible sigmoidoscopy. INDICATION: Colitis involving the left side, with negative stool studies and rectal bleeding. INSTRUMENT USED: GIF H 180 J. MEDICATIONS: No medications were administered for sedation. PREPARATION QUALITY: Good. PROCEDURE DETAILS: After informed consent was obtained, the patient was brought into the GI suite, where she was placed on oxygen via nasal cannula and monitored with continuous pulse oximeter, telemetry, and blood pressure monitoring. A time-out was performed, then she was placed in the left lateral decubitus position. Digital rectal exam was performed, which revealed blood-tinged fluid. The standard upper endoscope was then inserted into the rectum and, using low air insufflation settings, advanced to approximately 40 cm. Beyond this, we did not advance the scope for concerns of possible perforation. The mucosa from 40 cm extending distally to 20 cm appeared slightly necrotic and edematous. The more proximal mucosa that I could visualize upstream appeared essentially the same. The colonoscope was then gently withdrawn as air was suctioned. At 20 cm, extending to the rectum, the mucosa appeared healthy and pink, with normal vascular tab pattern. Retroflexion was not performed in the rectum. IMPRESSION: Ischemic colitis. RECOMMENDATIONS: 1. Continue IV fluids. 2. Continue IV antibiotics. 3. Will obtain an MR angiogram. Surgery has been consulted and has seen the patient. 4. Continue to follow H and H. COMPLICATIONS: None. ESTIMATED BLOOD LOSS: Zero.
--- NOTE | 2017-04-20 17:55 | PCM.PNMED ---
Subjective Date of Service Apr 20, 2017 Subjective Flexible sigmoidoscopy was performed as her stool studies were negative for infection Sigmoidoscopy to 40 cm revealed edematous necrotic appearing colon mucosa from 20 cm to 40 cm. Appearance was consistent with ischemic colitis She does state the pain is slightly better today on the left side she is still passing intermittent small quantities of blood She denies any fever chills or sweats. Exam Vital Signs Vital Sign - Last Date Time Temp Pulse Resp B/P Pulse Ox O2 Delivery O2 Flow Rate FiO2 04/20/17 14:03 37.5 77 18 165/62 95 Room Air Intake and Output 04/19/17 04/19/17 04/20/17 Cumulative From/Thru 15:00 23:00 07:00 04/19/17 10:52 - 04/20/17 05:56 Intake Total 2000 ml 1000 ml 1248 ml 4248 ml Output Total 1050 ml 1050 ml Balance 2000 ml 1000 ml 198 ml 3198 ml Intake Oral 0 ml 0 ml IV Total 2000 ml 1000 ml 1248 ml 4248 ml Output Urine Total 1050 ml 1050 ml Exam Generally she does not appear to be in any distress and is oriented to person place and time and answers questions appropriately Respiratory exam is clear to auscultation bilaterally Cardiovascular exam- S1 and S2 heard Abdominal exam- she is tender in the left upper quadrant and left lower quadrant , there is no rebound or guarding, bowel sounds are appreciated Extremities- no edema clubbing or cyanosis present Lab and Diagnostics Result Diagram: 04/20/17 0643 04/20/17 0643 X-Rays, CTs and MRIs PROCEDURE: CT ABDOMEN AND PELVIS WITH CONTRAST ([id number]) INDICATIONS: vomiting, BRBPR IMPRESSION: 1. Abnormal transverse and descending colon consistent with colitis. There are scattered diverticula but no diverticulitis. Dictated by: Jimmy Arnett M.D. on 04/19/2017 at 15:09 Approved by: Jimmy Arnett M.D. on 04/19/2017 at 15:21 PROCEDURE: X-RAY ACUTE ABDOMINAL SERIES ([id number]) INDICATIONS: NAUSEA, VOMITTING, DIARRHEA IMPRESSION: The appearance of the bowel gas pattern is abnormal but more consistent with diarrhea evaluate for obstruction. No dilated loops are seen. Assessment & Plan Ischemic colitis -Continue supportive care with IV fluids, IV antibiotics, nothing by mouth -Follow H&H -General surgery is following -Her initial CT with contrast did not show any abnormalities of the abdominal blood vessels -We will obtain an MR angiogram -Discussed with the patient and her who was at bedside the above and also that if things should worsen she may require surgery i.e. partial colectomy with possible colostomy. GI Prophylaxis: Proton Pump Inhibitor VTE Mechanical Devices: Intermittant Pneumatic CD Resuscitation Status: CPR: Attempt Resuscitation ( and daughter are alternate decision makers) Robb Loyola MD Apr 20, 2017 17:55
[2017-04-21] VITALS (9 sets, daily range): BP systolic 126–140; BP diastolic 55–66; PULSE 71–135; RESP 18–20; O2SAT 91–96
[2017-04-21] MEDS: 0.9% Sodium Chloride 1,000 ML IV SCH ×4 (00:08→20:25)
[2017-04-21] MEDS: Sodium Chloride LOK Flush 10 mL Syringe IVFLUSH SCH ×3 (00:09→16:30)
[2017-04-21] MEDS: metroNIDAZOLE Inj 500 MG in IV Premix 1 EACH IV SCH ×3 (00:45→17:46)
--- NOTE | 2017-04-21 03:28 | NUR ---
Nausea Patient continued to c/o of nausea, given 4mg only to repeat dose within 90 minutes of first dose. Denies pain, but c/o of difficulty sleeping. Tolerating ABX well, will continue to monitor nausea.
[2017-04-21 06:39] LABS: BASOPHILS % (AUTO) 0.1 % (0-3); EOSINOPHILS % (AUTO) 0.3 % (0-5); Mean Corpuscular Hemoglobin 29.8 pg (27.0-35.0); Mean Corpuscular Volume 89.9 fL (81-100); NEUTROPHILS % (AUTO) 75.4 % (40-74); Platelet Count 147 bil/L (150-400)
--- NOTE | 2017-04-21 06:54 | NUR ---
AFIB Patient c/o CP and panel monitor simultaneously calling reporting AFIB. Patient sitting up in chair at time of call. VS taken by NAC BP-129/34, P between 110 and 140.
[2017-04-21] MEDS ORDERED: MeTOProlol 1 mg/mL 5 mL Inj IVPUSH ONE (07:25)
--- NOTE | 2017-04-21 07:41 | PCM.PNMED ---
Subjective Date of Service Apr 21, 2017 Subjective Mild mid retrosternal chest pressure, onset about one hour ago. Still some diffuse abdominal pain although less and on admission. No bowel movement or rectal bleeding since last evening. Exam Vital Signs Vital Sign - Last Date Time Temp Pulse Resp B/P Pulse Ox O2 Delivery O2 Flow Rate FiO2 04/21/17 06:55 36.9 135 18 129/64 95 Room Air Intake and Output 04/20/17 04/20/17 04/21/17 Cumulative From/Thru 15:00 23:00 07:00 04/19/17 10:52 - 04/20/17 18:48 Intake Total 1390 ml 5638 ml Output Total 700 ml 1750 ml Balance 690 ml 3888 ml Intake Oral 0 ml 0 ml IV Total 1390 ml 5638 ml Output Urine Total 400 ml 1450 ml Stool Total 300 ml 300 ml Exam General: Alert and oriented, no acute distress Heart: irreg irreg, rate approx 130 Lungs: Clear anteriorly and laterally Abdomen: Soft, bowel tones present, diffuse tenderness to mild to moderate palpation, especially across the lower abdomen Extremities: No pedal edema IVs and Medications Medications Reviewed: Medications were reviewed in detail Lab and Diagnostics Result Diagram: 04/21/1718 04/21/17 0618 X-Rays, CTs and MRIs PROCEDURE: CT ABDOMEN AND PELVIS WITH CONTRAST ([id number]) INDICATIONS: vomiting, BRBPR IMPRESSION: 1. Abnormal transverse and descending colon consistent with colitis. There are scattered diverticula but no diverticulitis. Dictated by: Jimmy Arnett M.D. on 04/19/2017 at 15:09 Approved by: Jimmy Arnett M.D. on 04/19/2017 at 15:21 PROCEDURE: X-RAY ACUTE ABDOMINAL SERIES ([id number]) INDICATIONS: NAUSEA, VOMITTING, DIARRHEA IMPRESSION: The appearance of the bowel gas pattern is abnormal but more consistent with diarrhea evaluate for obstruction. No dilated loops are seen. Assessment & Plan # A fib with rapid rate associated with mild chest pressure and ischemic EKG changes (diffuse ST-T changes new since April 19, most prominent is lat ST depression) -- hx CAD w CABG 6-7 years ago, says no CP since then -- reports Afib post op after CABG but not aware of any since -- not on her usual Toprol XL 50 qd although did get 5mg IV on 04/19 and 50 mg metoprolol tartrate 04/20 am -- usual aspirin held due to GI bleed but per conversation with GI this am okay to resume -- Will give Metoprolol 5 mg IV now then resume oral Metoprolol but initially use 25 mg bid of tartrate instead of 50 qam of succinate -- check troponins Addendum at 1520: she is back in NSR and two troponins have been negative. Advised her to follow up with her health care marketing manager 1-2 weeks after discharge and discuss further treatment, especially discuss if she needs chronic anticoagulation # Abdominal Pain and Lower GI bleed, acute POA: due to ischemic bowel -- GI and surgery following, flex sig last evening c/w ischemic bowel -- cipro and flagy IV antibiotics -- MR angiogram today per GI (Her initial CT with contrast did not show any abnormalities of the abdominal blood vessels) -- stool PCR test negative including c dif -- 1 L bolus initially and now 100 cc/hr NS -- Follow H&H, 11.9 yesterday am to 10.3 this am -- Morphine 4 mg IV Q3HPRN -- Zofran IV for nausea control # Lactic acidosis metabolic acidosis, POA, resolved -- Likely due to ischemic bowel -- metformin is held -- 1L bolus then IVF with NS # Hypertensive Urgency, POA, resolved -- Metoprolol 5mg IV --, Enalapril IV PRN - dose molina of April 19 for SBP 200 per nurse's note -- SBP now 160s-180s although 129 this am while in Afib with rapid rate # Diabetes mellitus type 2, chronic active -- Hold metformin -- Low-dose sliding scale --Every 6 hours glucose checks, currently in 100s # Hypertension, chronic active -- has been on usual Lisinopril -- resume metoprolol as above # GERD, chronic active -- IV Protonix 40 mg daily # Hyperlipidemia, chronic active -- We will hold her home statin # Hypothyroidism, chronic active -- Hold levothyroxine for now # CAD status post CABG, chronic active -- Hold aspirin, statin GI Prophylaxis: Proton Pump Inhibitor VTE Mechanical Devices: Intermittant Pneumatic CD Resuscitation Status: CPR: Attempt Resuscitation ( and daughter are alternate decision makers) Arlen Rodriguez MD Apr 21, 2017 07:41 -- Hold levothyroxine for now # CAD status post CABG, chronic active -- Hold aspirin, statin Ischemic colitis -Continue supportive care with IV fluids, IV antibiotics, nothing by mouth -Follow H&H -General surgery is following -Her initial CT with contrast did not show any abnormalities of the abdominal blood vessels -We will obtain an MR angiogram -Discussed with the patient and her who was at bedside the above and also that if things should worsen she may require surgery i.e. partial colectomy with possible colostomy. GI Prophylaxis: Proton Pump Inhibitor VTE Mechanical Devices: Intermittant Pneumatic CD Resuscitation Status: CPR: Attempt Resuscitation ( and daughter are alternate decision makers) Arlen Rodriguez MD Apr 21, 2017 07:41
[2017-04-21] MEDS: Insulin LISPRO 300 Unit/3 mL Inj SUBQ SCH ×4 (08:00→22:00)
[2017-04-21] MEDS: Pantoprazole 4 mg/mL 10 mL Inj IVPUSH SCH (09:11)
[2017-04-21] MEDS: Ciprofloxacin Inj 400 MG in IV Premix 1 EACH IV SCH (09:12)
[2017-04-21] MEDS: Lisinopril 40 Tablet PO SCH (09:12)
--- NOTE | 2017-04-21 09:56 | PCM.PNSURG ---
Subjective Date of Service: Apr 21, 2017 Date of Service: Apr 21, 2017 Visit Information: Reason for Visit Colitis, Bright Red Blood Perirectum Date of Admission: Apr 19, 2017 at 16:39 Hospital Day # 2 Subjective: 72-year-old female was admitted to the hospital with abdominal pain, cramping, diarrhea, and bright red blood per rectum. She reports feeling better today, her pain has decreased significantly. She is in atrial fibrillation and can feel the flip-flops in her chest. She is not feeling nauseous or having any vomiting. She has not had a bowel movement since yesterday. Postop General: No Shortness of Breath Gastrointestinal: No N/V, Other (nothing by mouth) Pain Management: PO (Tylenol), IV Push (morphine) Objective Vital Sign- Last 8 Hours Date Time Temp Pulse Resp B/P Pulse Ox O2 Delivery O2 Flow Rate FiO2 04/21/17 09:13 94 140/66 04/21/17 07:51 93 134/59 04/21/17 06:55 36.9 135 18 129/64 95 Room Air 04/21/17 04:04 37.3 89 18 132/55 91 Room Air Intake and Output- Last 8 Hour 04/21/17 Cumulative From/Thru 07:00 04/19/17 10:52 - 04/20/17 18:48 Intake Total 5638 ml Output Total 1750 ml Balance 3888 ml Intake Oral 0 ml IV Total 5638 ml Output Urine Total 1450 ml Stool Total 300 ml General: Alert, Oriented X3, Cooperative, No Acute Distress Neck: Supple Lungs: Clear to Auscultation, Normal Air Movement Heart: Other (irregularly irregular) Abdomen: Soft, Appropriately tender (LLQ tenderness to palpation greater than R ), Rebound Tenderness (slight), Non-distended, No masses, Normoactive bowel tones Extremities: Warm Neuro: Grossly Neurologically Intact Catheters: None Result Diagram: 04/21/1761704/21/17617 Lab & Micro Results: WBCs decreased to 17.4 from 22.1. 75.4% neutrophils. Hemoglobin 10.3, hematocrit 31.1 lactic acid decreased to 0.7. Assessment & Plan Impression 72-year-old female with sudden onset abdominal pain, nausea, vomiting, and bright red blood per rectum. Flexible sigmoidoscopy performed yesterday shows evidence of ischemic colitis. Patient clinically has improved. She will have MR angiogram today. CT abdomen and pelvis with contrast shows evidence of colitis in transverse and descending colon, no evidence of diverticulitis. Stool studies are negative for infectious etiology. Her abdominal exam continues to not be worrisome for peritonitis. Problems: Plan 1. MR angiogram to be performed today. 2. Continue supportive care with IV antibiotics, IV fluids and nothing by mouth status 3. Degenerative for this interesting consult, we will continue to follow along with you. Resuscitation Status: CPR: Attempt Resuscitation ( and daughter are alternate decision makers) Attending Statement: I agree with Dr. Gonzalez's assessment and plan. Continue IV abx and supportive care. copies to: Cristino Shelton MD, Erika R DO Apr 21, 2017 09:56 Cristino Shelton MD Apr 25, 2017 08:14
--- NOTE | 2017-04-21 13:00 | NUR ---
NUTRITION ASSESSMENT: ASSESS: 72YO F admit with lower GI bleed 2/2 ischemic colitis s/p sigmoidoscopy, surgeon notes indicate an MR angiogram to be performed today, some concern re potential peritonitis. Pt NPO. Continues with n/v, no BM noted today. PMHX: Diabetes, hypothyroid, hyperlipidemia,Afib,GERD,CAD DIET: NPO x 2d. LABS: Glu 125, Ca 8.1, Alb 3.2 MEDS: Reviewed GI: No BM, bloody BM last pm per MD notes WEIGHT: 76.1kg BMI: 28.8 = Overweight EST.NEEDS: (25-30kcal/kg;1.0-1.2g/kg pro) Kcal: [id number] Pro: 75-90g NUTRITION DIAGNOSIS: (1) Inadequate oral intake related to altered GI tract function as evidenced by NPO x 2 days. INTERVENTION: (1) Monitor for potential diet advancement. (2) In event TPN initiated, recommend begin with: 120g dextrose, 50g AA, 30g lipids to provide 908kcal, 50g protein (~ 50% estimated needs). Continue to increase to goal pending po/labs,etc. MONITOR/EVALUATE: Diet advancement vs. potential for nutrition support. F/U per high risk.
--- NOTE | 2017-04-21 13:08 | NUR ---
Off Unit Patient off floor to MRI via W/C. SL and Tele removed.
--- NOTE | 2017-04-21 13:30 | NUR ---
Back on Unit Patient back on floor from MRI via W/C. Denies pain and nausea. IV restarted and Tele on. Call light and tray table within reach. Will continue to monitor patient hourly.
--- NOTE | 2017-04-21 14:14 | NUR ---
Social Work: Initial Assessment D: EMR reviewed. Pt is a 72 y/o female admitted for colitis, bright red perirectum per H&P. ADRIANNA met with pt and spouse at bedside to conduct initial assessment. Pt was alert and oriented x3. SW explained role and wrote phone number on white board. Pt's insurance is Medicare and [employer]. Pt's PCP is ARELY Villasenor. Pt gave verbal consent to contact spouse/DPOA Ish Fernandez ([phone]) for discharge planning. Pt has completed DPOA/advanced directive ppw and SW encouraged pt to provide a copy to the hospital. Pt has no hx of HH or a SNF. Pt has does not have LTC insurance or VA benefits. Pt is independent with ADLs. Pt does not use any DME. Pt drives. Pt is independent at baseline. Pt lives in a single-story home with 3 steps to enter with her spouse in [place]. Pt's spouse confirmed he will provide transport home via POV when pt is medically stable for discharge. SW does not anticipate any discharge needs at this time but will continue to follow if needs arise. A: Pt who is independent at baseline. P: Pt's spouse confirmed he will provide transport home via POV when pt is medically stable for discharge. ADRIANNA does not anticipate any discharge needs at this time but will continue to follow if needs arise. Addendum: 04/21/17 at 1422 by KAROLINE SIMON SS Amended: Links added.
--- NOTE | 2017-04-21 15:28 | PCM.PNMED ---
Subjective Date of Service Apr 21, 2017 Subjective seen this morning abdominal pain improved no further rectal bleeding maryann yesterday has been having chest pressure and now in atrial fibrillation Exam Vital Signs Vital Sign - Last Date Time Temp Pulse Resp B/P Pulse Ox O2 Delivery O2 Flow Rate FiO2 04/21/17 13:43 92 04/21/17 12:43 37.1 18 126/66 95 Room Air Intake and Output 04/20/17 04/20/17 04/21/17 Cumulative From/Thru 15:00 23:00 07:00 04/19/17 10:52 - 04/20/17 18:48 Intake Total 1390 ml 5638 ml Output Total 700 ml 1750 ml Balance 690 ml 3888 ml Intake Oral 0 ml 0 ml IV Total 1390 ml 5638 ml Output Urine Total 400 ml 1450 ml Stool Total 300 ml 300 ml Exam GEN- oriented, no apparent distress chest- clear to auscultation CVS-ireg irreg abdomen- soft, tender in LUQ and LLQ, but no rebound or guarding Lab and Diagnostics Result Diagram: 04/21/1718 04/21/17 0618 X-Rays, CTs and MRIs PROCEDURE: CT ABDOMEN AND PELVIS WITH CONTRAST ([id number]) INDICATIONS: vomiting, BRBPR IMPRESSION: 1. Abnormal transverse and descending colon consistent with colitis. There are scattered diverticula but no diverticulitis. Dictated by: Jimmy Arnett M.D. on 04/19/2017 at 15:09 Approved by: Jimmy Arnett M.D. on 04/19/2017 at 15:21 PROCEDURE: X-RAY ACUTE ABDOMINAL SERIES ([id number]) INDICATIONS: NAUSEA, VOMITTING, DIARRHEA IMPRESSION: The appearance of the bowel gas pattern is abnormal but more consistent with diarrhea evaluate for obstruction. No dilated loops are seen. Assessment & Plan Ischemic colitis -cont IV fluids, IV antibiotics and NPO -WBC and lactic acid improved -MR abdominal angio without SMA or VIJAY stenosis -follow CBC GI Prophylaxis: Proton Pump Inhibitor VTE Mechanical Devices: Intermittant Pneumatic CD Resuscitation Status: CPR: Attempt Resuscitation ( and daughter are alternate decision makers) Robb Loyola MD Apr 21, 2017 15:28 -- check troponins # Abdominal Pain and Lower GI bleed, acute POA: due to ischemic bowel -- GI and surgery following, flex sig last evening c/w ischemic bowel -- cipro and flagy IV antibiotics -- MR angiogram today per GI (Her initial CT with contrast did not show any abnormalities of the abdominal blood vessels) -- stool PCR test negative including c dif -- 1 L bolus initially and now 100 cc/hr NS -- Follow H&H, 11.9 yesterday am to 10.3 this am -- Morphine 4 mg IV Q3HPRN -- Zofran IV for nausea control # Lactic acidosis metabolic acidosis, POA, resolved -- Likely due to ischemic bowel -- metformin is held -- 1L bolus then IVF with NS # Hypertensive Urgency, POA, resolved -- Metoprolol 5mg IV --, Enalapril IV PRN - dose molina of April 19 for SBP 200 per nurse's note -- SBP now 160s-180s although 129 this am while in Afib with rapid rate # Diabetes mellitus type 2, chronic active -- Hold metformin -- Low-dose sliding scale --Every 6 hours glucose checks, currently in 100s # Hypertension, chronic active -- has been on usual Lisinopril -- resume metoprolol as above # GERD, chronic active -- IV Protonix 40 mg daily # Hyperlipidemia, chronic active -- We will hold her home statin # Hypothyroidism, chronic active -- Hold levothyroxine for now # CAD status post CABG, chronic active -- Hold aspirin, statin GI Prophylaxis: Proton Pump Inhibitor VTE Mechanical Devices: Intermittant Pneumatic CD Resuscitation Status: CPR: Attempt Resuscitation ( and daughter are alternate decision makers) Robb Loyola MD Apr 21, 2017 15:28
--- NOTE | 2017-04-21 15:32 | DRSVH ---
PROCEDURE: MRA ANGIOGRAM ABDOMEN ([id number]) INDICATIONS: Left sided ischemic colitis TECHNIQUE: Precontrast axial, coronal, and sagittal TruFISP acquired through the abdomen and pelvis. Dynamic co gorge MRA using Care Bolus timing of the abdomen and pelvis during the administration of contrast, wi th 3-dimensional maximum intensity projection (MIP) reformats performed. COMPARISON: [facility], CT, CT ABD PELVIS W CON, 04/19/2017, 14:44. FINDINGS: Image quality: Excellent. Mesenteric arteries: There is a moderate grade stenosis at the origin of the celiac axis. The SMA is patent. The VIJAY is patent without definite stenosis at the origin. Aorta: Aorta is normal in caliber and enhancement. Renal arteries: Renal arteries are poorly characterized. There is likely mild stenosis of the origin of the right renal artery. The left renal artery is not visualized. Extravascular soft tissues: Visualized solid organs are normal in size on limited pre-contrast image s. Bowel loops are normal in caliber. No free fluid. No retroperitoneal or mesenteric adenopathy b y size criteria. No ventral hernias. Bones: Marrow is normal in overall signal. IMPRESSION: 1. 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 No stenosis of the SMA or VIJAY. Given the lack of multiple mesenteric arterial stenoses, mesenteric ischemia is considered unlikely. 2. Right renal artery stenosis. 3. Poor characterization of left renal artery. Dictated by: Radha Gold M.D. on 04/21/2017 at 15:23 Approved by: Radha Gold M.D. on 04/21/2017 at 15:30
[2017-04-21] MEDS ORDERED: levoFLOXacin Inj 500 MG in IV Premix 1 EACH IV SCH (20:30)
[2017-04-22] VITALS (7 sets, daily range): BP systolic 127–155; BP diastolic 56–67; PULSE 74–88; RESP 16–18; O2SAT 95–98
[2017-04-22] MEDS: metroNIDAZOLE Inj 500 MG in IV Premix 1 EACH IV SCH ×3 (00:25→18:09)
[2017-04-22] MEDS: Sodium Chloride LOK Flush 10 mL Syringe IVFLUSH SCH ×4 (00:30→23:18)
--- NOTE | 2017-04-22 04:00 | NUR ---
Pain/Activity pt reported 8/10 abdominal discomfort/pain. Administered 4mg IVP morphine. pt reported pain relief on rate of 2/1o which is tolerable for her. pt ambulated in the hallway with this RN. Gait steady, but tiredness. will continue to monitor and provide care.
[2017-04-22] MEDS: 0.9% Sodium Chloride 1,000 ML IV SCH ×2 (05:15→22:03)
[2017-04-22] MEDS ORDERED: Pantoprazole 40 mg ER24 Tablet PO SCH (06:30)
[2017-04-22 07:01] LABS: BASOPHILS % (AUTO) 0.2 % (0-3); EOSINOPHILS % (AUTO) 1.7 % (0-5); Mean Corpuscular Hemoglobin 29.3 pg (27.0-35.0); Mean Corpuscular Volume 90.2 fL (81-100); NEUTROPHILS % (AUTO) 77.6 % (40-74); Platelet Count 136 bil/L (150-400)
--- NOTE | 2017-04-22 07:02 | PCM.PNSURG ---
Subjective Visit Information: Reason for Visit Colitis, Bright Red Blood Perirectum Surgery/Surgery Date Post-Op Day # Date of Admission: Apr 19, 2017 at 16:39 Hospital Day # Subjective: feeling better overall, abd pain is less, no rectal bleeding, less nausea, afebrile, underwent MRA study yesterday Objective Objective Arousable in bed Not tachycardic Abd: less tender on exam in L lat abdomen and LLQ, no peritoneal signs MRA study -- stenosis at celiac axis, but SMA and VIJAY without stenosis Vital Sign- Last 8 Hours Date Time Temp Pulse Resp B/P Pulse Ox O2 Delivery O2 Flow Rate FiO2 04/22/17 01:29 36.8 74 16 131/56 96 Room Air Intake and Output- Last 8 Hour 04/22/17 Cumulative From/Thru 07:00 04/19/17 10:52 - 04/22/17 06:20 Intake Total 1282 ml 8301 ml Output Total 300 ml 2600 ml Balance 982 ml 5701 ml Intake Oral 0 ml IV Total 1282 ml 8301 ml Output Urine Total 300 ml 2300 ml Stool Total 300 ml # Voids 4 # Bowel Movements 0 0 Result Diagram: 04/21/17 0618 04/21/17 0618 Assessment & Plan Impression Ischemic colitis, clinically improving Problems: Plan Continue IV abx OK to advance to clear liquids Ambulate Pain control Resuscitation Status: CPR: Attempt Resuscitation ( and daughter are alternate decision makers) Cristino Shelton MD Apr 22, 2017 07:02
[2017-04-22] MEDS: Insulin LISPRO 300 Unit/3 mL Inj SUBQ SCH ×4 (08:00→21:28)
[2017-04-22] MEDS: Lisinopril 40 Tablet PO SCH (08:21)
--- NOTE | 2017-04-22 16:02 | PCM.PNMED ---
Subjective Date of Service Apr 22, 2017 Subjective Patient is complaining of lower abdominal pain which is dull, 4/10, exacerbated by palpation, elevated by rest and pain medications. Patient also has paroxysmal atrial fibrillation. I discussed anticoagulation for CVA prevention with the patient. She would like to follow up with her renal dialysis technician after discharge from the hospital. As for now she is on aspirin. Taking into consideration and recent lower GI bleed patient would like to wait with blood thinners until she improves. Exam Vital Signs Vital Sign - Last Date Time Temp Pulse Resp B/P Pulse Ox O2 Delivery O2 Flow Rate FiO2 04/22/17 13:01 36.8 77 18 142/66 97 Room Air Intake and Output 04/21/17 04/21/17 04/22/17 Cumulative From/Thru 15:00 23:00 07:00 04/19/17 10:52 - 04/22/17 06:20 Intake Total 883 ml 498 ml 1282 ml 8301 ml Output Total 550 ml 300 ml 2600 ml Balance 883 ml -52 ml 982 ml 5701 ml Intake Oral 0 ml 0 ml IV Total 883 ml 498 ml 1282 ml 8301 ml Output Urine Total 550 ml 300 ml 2300 ml Stool Total 300 ml # Voids 4 4 # Bowel Movements 0 0 0 Exam GENERAL: Alert, not in distress, cooperative HEAD: atraumatic, normocephalic, no bruises. EYES: BRAYAN, EOMI, anicteric, able to fully open and close eyelids SKIN: Skin color normal, turgor normal No visible rashes or lesions. EAR, NOSE, MOUTH, THROAT: Lips, oral mucosa, tongue gums, oropharynx ar moist, pink, no lesions. Ears normal appearance, no lesions. NECK: no jugulovenous distention, no carotid bruits, carotid pulse normal contour, No carotid bruit, supple, no enlarged lymph nodes appreciated; ROM normal. RESPIRATORY: Lungs clear to auscultation. Good diaphragmatic excursion. Normal percussion sound. CARDIAC: normal S1 and S2; no rubs, murmurs, or gallops; regular rate and rhythm ABDOMEN: Abdomen soft, tender. BS normal. No masses or organomegaly. MUSCULOSKELETAL: ROM full, muscles are not tender EXTREMITIES: no pitting edema in LE, no deformities, clubbing or skin discoloration. NEURO: Alert, oriented X3 Sensation grossly intact., Cranial nerves II-XII intact, Grossly normal motor function. PULSES: 2+ radial, , 2+ carotid REVIEW OF SYSTEMS: GENERAL: + malaise, no fevers., SEE HPI HEENT: Negative for frequent or significant headaches, No changes in hearing or vision, no nose bleeds or other nasal problems All other reviewed and negative other than HPI. Lab and Diagnostics Result Diagram: 04/22/17 0646 04/21/17 0618 X-Rays, CTs and MRIs PROCEDURE: CT ABDOMEN AND PELVIS WITH CONTRAST ([id number]) INDICATIONS: vomiting, BRBPR IMPRESSION: 1. Abnormal transverse and descending colon consistent with colitis. There are scattered diverticula but no diverticulitis. Dictated by: Jimmy Arnett M.D. on 04/19/2017 at 15:09 Approved by: Jimmy Arnett M.D. on 04/19/2017 at 15:21 PROCEDURE: X-RAY ACUTE ABDOMINAL SERIES ([id number]) INDICATIONS: NAUSEA, VOMITTING, DIARRHEA IMPRESSION: The appearance of the bowel gas pattern is abnormal but more consistent with diarrhea evaluate for obstruction. No dilated loops are seen. Assessment & Plan A fib RVR. Hx of CAD , s/p CABG, Hyperlipidemia - stable - savanna is a candidate for anticoagulation. I discussed risk and benefit of ACT with the patient . She would like to c/w ASA for now. She would like to see her renal dialysis technician after discharge to discuss it further. - c/w curent meds Ischemic colitis - improving - c/w liquid diet, advance as tolerated. - c/w current meds HTN - stable - c/w current meds Diabetes mellitus type 2, chronic active - stable - c/w Accuchecks, ISS, DM diet GERD Hypothyroidism, chronic active - stable - c/w home meds Disposition: discharge in 1-3 days after patient improves. Labs, radiology tests, ECG reviewed. Plan of care, medication side effects, home medication, diagnostic procedures and available alternatives were discussed and reviewed with patient. All questions answered. Patient verbalized understanding, approved and agreed to plan of care. Given patient's current condition, I certify, in my opinion inpatient services greater than two midnights are medically necessary for this patient. Please see H&P and MD progress notes for additional information about patient's course of treatment. GI Prophylaxis: Proton Pump Inhibitor VTE Mechanical Devices: Intermittant Pneumatic CD Resuscitation Status: CPR: Attempt Resuscitation ( and daughter are alternate decision makers) Time spent 35 min spent coordinating care, counselling , reviewing old records Teodoro Mckinnon MD Apr 22, 2017 16:02
[2017-04-22] MEDS ORDERED: ASPI81TA3 PO (16:22)
[2017-04-22] MEDS: Ondansetron 2 mg/mL 2 mL Inj IVPUSH PRN (16:42)
[2017-04-22] MEDS: levoFLOXacin Inj 500 MG in IV Premix 1 EACH IV SCH (21:20)
--- NOTE | 2017-04-22 22:23 | PCM.PNMED ---
Subjective Date of Service Apr 22, 2017 Subjective abdominal pain improved tolerating clears passed few blood clots per rectum but no susy bleeding Exam Vital Signs Vital Sign - Last Date Time Temp Pulse Resp B/P Pulse Ox O2 Delivery O2 Flow Rate FiO2 04/22/17 21:46 36.7 04/22/17 20:00 78 04/22/17 19:33 18 155/65 95 Room Air Intake and Output 04/21/17 04/21/17 04/22/17 Cumulative From/Thru 15:00 23:00 07:00 04/19/17 10:52 - 04/22/17 06:20 Intake Total 883 ml 498 ml 1282 ml 8301 ml Output Total 550 ml 300 ml 2600 ml Balance 883 ml -52 ml 982 ml 5701 ml Intake Oral 0 ml 0 ml IV Total 883 ml 498 ml 1282 ml 8301 ml Output Urine Total 550 ml 300 ml 2300 ml Stool Total 300 ml # Voids 4 4 # Bowel Movements 0 0 0 Exam GEN- oriented and appropriate HEENT- no pallor or icterus RESP- clear bilaterally CVS -irreg irreg Abdomen- tender in LUQ and LLQ but less tender then yesterday ext- no edema Lab and Diagnostics Result Diagram: 04/22/17 0646 04/21/17 0618 X-Rays, CTs and MRIs PROCEDURE: CT ABDOMEN AND PELVIS WITH CONTRAST ([id number]) INDICATIONS: vomiting, BRBPR IMPRESSION: 1. Abnormal transverse and descending colon consistent with colitis. There are scattered diverticula but no diverticulitis. Dictated by: Jimmy Arnett M.D. on 04/19/2017 at 15:09 Approved by: Jimmy Arnett M.D. on 04/19/2017 at 15:21 PROCEDURE: X-RAY ACUTE ABDOMINAL SERIES ([id number]) INDICATIONS: NAUSEA, VOMITTING, DIARRHEA IMPRESSION: The appearance of the bowel gas pattern is abnormal but more consistent with diarrhea evaluate for obstruction. No dilated loops are seen. Assessment & Plan Ischemic Colitis -pain improved along with WBC -if pain continues to improve, tomorrow could advance to full liquid diet, would avoid dairy -cont IV antibiotics Anemia -continue to follow H/H -secondary to Ischemic colitis Atrial Fibrillation -agree with martha starting anticoagulation at this time Thrombocytopenia -secondary to meds? -could stop PPI and switch to H 2 gordon GI Prophylaxis: Proton Pump Inhibitor VTE Mechanical Devices: Intermittant Pneumatic CD Resuscitation Status: CPR: Attempt Resuscitation ( and daughter are alternate decision makers) Robb Loyola MD Apr 22, 2017 22:23
[2017-04-23] VITALS (8 sets, daily range): BP systolic 154–190; BP diastolic 54–73; PULSE 73–79; RESP 16–20; O2SAT 95–97
[2017-04-23] MEDS: metroNIDAZOLE Inj 500 MG in IV Premix 1 EACH IV SCH ×3 (00:44→17:00)
[2017-04-23] MEDS: Ondansetron 2 mg/mL 2 mL Inj IVPUSH PRN ×2 (02:14→03:54)
[2017-04-23] MEDS: 0.9% Sodium Chloride 1,000 ML IV SCH ×4 (02:25→22:28)
[2017-04-23] MEDS: MetoCLOpramide 5 mg/mL 2 mL Inj IVPUSH PRN ×2 (05:10→18:58)
--- NOTE | 2017-04-23 06:49 | NUR ---
Nausea/Vomiting Pt experienced nausea and vomitus. Zofran 4mg administered. Dry heaving, coughing and phlegm drainage from right sinus. Zofran ineffective. Pagejess physician. Ordered Reglan, which was effective for patient. Addendum: 04/23/17 at 0704 by KIMI OSEGUERA RN Bright red blood from rectum expelled during coughing/dry heaving. pt stated it was much less than when she was in the ED.
[2017-04-23] MEDS: Insulin LISPRO 300 Unit/3 mL Inj SUBQ SCH ×4 (08:00→22:00)
[2017-04-23] MEDS: Sodium Chloride LOK Flush 10 mL Syringe IVFLUSH SCH ×2 (08:30→17:03)
[2017-04-23] MEDS: Lisinopril 40 Tablet PO SCH (08:33)
[2017-04-23 08:59] LABS: Mean Corpuscular Hemoglobin 29.2 pg (27.0-35.0); Mean Corpuscular Volume 88.5 fL (81-100)
--- NOTE | 2017-04-23 10:46 | NUR ---
ZECHARIAH Signed @ 1024AM
--- NOTE | 2017-04-23 11:31 | PCM.PNSURG ---
Subjective Date of Service: Apr 23, 2017 Visit Information: Reason for Visit Colitis, Bright Red Blood Perirectum Surgery/Surgery Date Post-Op Day # Date of Admission: Apr 19, 2017 at 16:39 Hospital Day #5 Subjective: Passed 1 small blood clot per rectum this morning. Experienced nausea and vomiting overnight which has since resolved. Drinking liquids, requesting more substantial food. Denies pain. Believes abdominal pain has improved significantly since yesterday. Ambulatory in the hallway without assistance. Postop General: Other Gastrointestinal: Tolerating Oral Feedings, No N/V (currently), Passing Stool ( as above) Pain Management: PO (Tylenol), IV Push (intermittent IV morphine) Postop Activity: Ambulating Independently Objective Vital Sign- Last 8 Hours Date Time Temp Pulse Resp B/P Pulse Ox O2 Delivery O2 Flow Rate FiO2 04/23/17 10:08 73 04/23/17 09:52 36.8 04/23/17 08:39 76 161/66 96 Room Air 04/23/17 04:14 37.2 77 20 188/73 95 Room Air Intake and Output- Last 8 Hour 04/23/17 Cumulative From/Thru 07:00 04/19/17 10:52 - 04/23/17 06:40 Intake Total 420 ml 71187 ml Output Total 450 ml 3850 ml Balance -30 ml 7048 ml Intake Oral 420 ml 1680 ml IV Total 9218 ml Output Urine Total 450 ml 3550 ml Stool Total 300 ml # Voids 1 9 # Bowel Movements 0 General: Alert, Cooperative, No Acute Distress Lungs: Clear to Auscultation Heart: Regular Rate/Rhythm Abdomen: Soft, Non-tender, Non-distended, No masses Extremities: Thigh&Calf Soft/Nontender Neuro: Normal Speech Catheters: None Result Diagram: 04/23/17 0840 04/23/17 0840 Assessment & Plan Impression Primary diagnosis: Ischemic colitis. HD #5 with resolving symptoms. Other chronic conditions: 1. Type II diabetes mellitus 2. Hypothyroidism 3. Atrial fibrillation, resolved 4. Hyperlipidemia 5. GERD 6. CAD status post CABG 7. Osteoarthritis 8. Mild aortic stenosis 9. Anxiety/depression Problems: Plan Diet as per Dr. Loyola's recommendations. No current indications for surgery Pain Management: Intermittent IV morphine. Oral Tylenol Resuscitation Status: CPR: Attempt Resuscitation ( and daughter are alternate decision makers) Marino Galloway PA-C Apr 23, 2017 11:31
--- NOTE | 2017-04-23 12:52 | PCM.PNMED ---
Subjective Date of Service Apr 23, 2017 Subjective Patient is complaining of lower abdominal pain which is dull, 2-3/10, exacerbated by palpation, elevated by rest and pain medications, associated with nausea, occasional vomiting. Patient also has paroxysmal atrial fibrillation. I discussed anticoagulation for CVA prevention with the patient. She would like to follow up with her genetic counsellor after discharge from the hospital. As for now she is on aspirin. Taking into consideration recent lower GI bleed patient would like to wait with blood thinners until she improves. Exam Vital Signs Vital Sign - Last Date Time Temp Pulse Resp B/P Pulse Ox O2 Delivery O2 Flow Rate FiO2 04/23/17 10:08 73 04/23/17 09:52 36.8 04/23/17 08:39 161/66 96 Room Air 04/23/17 04:14 20 Intake and Output 04/22/17 04/22/17 04/23/17 Cumulative From/Thru 14:59 22:59 06:59 04/19/17 10:52 - 04/23/17 06:40 Intake Total 828 ml 1349 ml 420 ml 92047 ml Output Total 800 ml 450 ml 3850 ml Balance 28 ml 1349 ml -30 ml 7048 ml Intake Oral 100 ml 1160 ml 420 ml 1680 ml IV Total 728 ml 189 ml 9218 ml Output Urine Total 800 ml 450 ml 3550 ml Stool Total 300 ml # Voids 4 1 9 # Bowel Movements 0 0 0 Exam GENERAL: Alert, not in distress HEAD: atraumatic, normocephalic, no bruises. EYES: BRAYAN, EOMI, anicteric, SKIN: Skin color normal, turgor normal. No visible rashes or lesions. EAR, NOSE, MOUTH, THROAT: Lips, oral mucosa, tongue are moist, pink, no lesions. NECK: supple, no enlarged lymph nodes appreciated; ROM normal. RESPIRATORY: Lungs clear to auscultation. Good diaphragmatic excursion. CARDIAC: normal S1 and S2; no rubs, murmurs, or gallops; regular rhythm ABDOMEN: Abdomen soft, tender. BS normal. MUSCULOSKELETAL: ROM full, muscles are not tender EXTREMITIES: no pitting edema in LE, no deformities, clubbing or skin discoloration. NEURO: Alert, oriented X 3, Cranial nerves II-XII intact, Grossly normal motor function. PULSES: 2+ radial, 2+ carotid REVIEW OF SYSTEMS: GENERAL: No weight loss, + malaise, no fevers., SEE HPI HEENT: Negative for frequent or significant headaches All other reviewed and negative other than HPI. IVs and Medications Medications Reviewed: Medications were reviewed in detail Lab and Diagnostics Result Diagram: 04/23/17 0840 04/23/17 0840 X-Rays, CTs and MRIs PROCEDURE: CT ABDOMEN AND PELVIS WITH CONTRAST ([id number]) INDICATIONS: vomiting, BRBPR IMPRESSION: 1. Abnormal transverse and descending colon consistent with colitis. There are scattered diverticula but no diverticulitis. Dictated by: Jimmy Arnett M.D. on 04/19/2017 at 15:09 Approved by: Jimmy Arnett M.D. on 04/19/2017 at 15:21 PROCEDURE: X-RAY ACUTE ABDOMINAL SERIES ([id number]) INDICATIONS: NAUSEA, VOMITTING, DIARRHEA IMPRESSION: The appearance of the bowel gas pattern is abnormal but more consistent with diarrhea evaluate for obstruction. No dilated loops are seen. Assessment & Plan A fib RVR. Hx of CAD , s/p CABG, Hyperlipidemia - stable - savanna is a candidate for anticoagulation. I discussed risk and benefit of ACT with the patient . She would like to c/w ASA for now. She would like to see her genetic counsellor after discharge to discuss it further. - c/w curent meds Ischemic colitis - improving - advance diet as tolerated. - c/w current meds HTN - elevated, taken prior to morning meds - c/w current meds - monitor and adjust meds as needed Diabetes mellitus type 2 - stable - c/w Accuchecks, ISS, DM diet GERD Hypothyroidism - stable - c/w home meds Disposition: discharge in 1-3 days after patient improves. Labs, radiology tests, ECG reviewed. Plan of care, medication side effects, home medication, diagnostic procedures and available alternatives were discussed and reviewed with patient. All questions answered. Patient verbalized understanding, approved and agreed to plan of care. Given patient's current condition, I certify, in my opinion inpatient services greater than two midnights are medically necessary for this patient. Please see H&P and MD progress notes for additional information about patient's course of treatment. Pain Evaluation: Adequate Pain Control GI Prophylaxis: Other VTE Mechanical Devices: Intermittant Pneumatic CD Resuscitation Status: CPR: Attempt Resuscitation ( and daughter are alternate decision makers) Teodoro Mckinnon MD Apr 23, 2017 12:52
--- NOTE | 2017-04-23 15:20 | NUR ---
NUTRITION FOLLOW-UP: ASSESS: 72 YO F admitted with lower GI bleed secondary to ischemic colitis s/p sigmoidoscopy. Pt continues to have lower abd. pain. Diet was advanced to clear liquids on 04/22 and advanced to full liquids today, with po intake of 25% s/p diet advancement. PMHX: Diabetes, hypothyroid, hyperlipidemia, Afib, GERD, CAD DIET: Full liquids, diabetic. PO 25% of lunch meal. LABS: Reviewed. BUN 7, Glu 135, Ca 7.9. MEDS: Reviewed GI: Last reported stool, 300 ML on 04/20. WEIGHT: 80.8 kg. Admit wt: 76.1 kg EST.NEEDS: 9403-3660 kcals (25-30 kcals/kg BW), 75-90 g protein (1.0-1.2 g/kg BW) NUTRITION DIAGNOSIS: (1) Inadequate oral intake related to altered GI tract function as evidenced by NPO/clear liquids x 3 days--IMPROVING, DIET ADV. TO FULL LIQUIDS. INTERVENTION: 1.) Will add Glucerna TID between meals to encourage adequate po intake. MONITOR/EVALUATE: Diet advancement / tolerance, labs, nutritional status. Follow per moderate nutritional risk guidelines. Addendum: 04/24/17 at [address] Pt was placed on a full liquid diet yesterday but experienced some pain and nausea so diet was changed back to clear liquids. Diet has been advanced to dairy free full liquids today with pt eating 50-75% of meals. Added Gelatein plus at meals and ensure clear TID at 10/2/8 for supplements to help meet pt est. needs. Will continue to monitor.
--- NOTE | 2017-04-23 19:46 | PCM.PNMED ---
Subjective Date of Service Apr 23, 2017 Subjective Pt had her first full liquid diet and she was only able to finish half of it due to nausea and abd pain Exam Vital Signs Vital Sign - Last Date Time Temp Pulse Resp B/P Pulse Ox O2 Delivery O2 Flow Rate FiO2 04/23/17 19:08 78 16 186/54 96 Room Air 04/23/17 15:18 36.7 Intake and Output 04/22/17 04/22/17 04/23/17 Cumulative From/Thru 15:00 23:00 07:00 04/19/17 10:52 - 04/23/17 06:40 Intake Total 828 ml 1349 ml 420 ml 54804 ml Output Total 800 ml 450 ml 3850 ml Balance 28 ml 1349 ml -30 ml 7048 ml Intake Oral 100 ml 1160 ml 420 ml 1680 ml IV Total 728 ml 189 ml 9218 ml Output Urine Total 800 ml 450 ml 3550 ml Stool Total 300 ml # Voids 4 1 9 # Bowel Movements 0 0 0 Exam Patient is alert oriented but in mild distress she just received pain medications Head and neck no icterus Lungs clear Cardiovascular regular normal S1-S2 Abdomen soft moderate tenderness in the left upper sides without guarding rebound or firmness bowel sounds present Skin shows no jaundice Lab and Diagnostics Result Diagram: 04/23/17 0840 04/23/17 0840 X-Rays, CTs and MRIs PROCEDURE: CT ABDOMEN AND PELVIS WITH CONTRAST ([id number]) INDICATIONS: vomiting, BRBPR IMPRESSION: 1. Abnormal transverse and descending colon consistent with colitis. There are scattered diverticula but no diverticulitis. Dictated by: Jimmy Arnett M.D. on 04/19/2017 at 15:09 Approved by: Jimmy Arnett M.D. on 04/19/2017 at 15:21 PROCEDURE: X-RAY ACUTE ABDOMINAL SERIES ([id number]) INDICATIONS: NAUSEA, VOMITTING, DIARRHEA IMPRESSION: The appearance of the bowel gas pattern is abnormal but more consistent with diarrhea evaluate for obstruction. No dilated loops are seen. Assessment & Plan Patient with ischemic colitis appears to be left transverse and descending per CT findings with colitis involving the distal transverse and descending colon. She was doing well with clear liquid diet earlier today. However it did not tolerate full liquid very well. She received pain medications. CT angiogram did not show multiple vessel disease. There was significant improvement in clinical course until she had full liquid diet. But no surgical abdomen noted. She still has darker blood in her stools. But H&H is stable. Continue IV antibiotics. Would recommend clear liquid diet. Would advance diet depending on how she does. We will defer diagnostic flexible sigmoidoscopy to when he comes back tomorrow. Could please consider trying advancing her diet tomorrow after some bowel rest tonight. GI Prophylaxis: Other VTE Mechanical Devices: Intermittant Pneumatic CD Resuscitation Status: CPR: Attempt Resuscitation ( and daughter are alternate decision makers) Praneeth Alvarado MD Apr 23, 2017 19:46
[2017-04-23] MEDS: levoFLOXacin Inj 500 MG in IV Premix 1 EACH IV SCH (20:52)
--- NOTE | 2017-04-23 23:30 | NUR ---
Pain Pt c/o 6/10 abd pain and requested Morphine. Morphine 4mg IVP given and was effective per Pt. Care continues.
[2017-04-24] VITALS (8 sets, daily range): BP systolic 148–166; BP diastolic 62–81; PULSE 65–79; RESP 16–20; O2SAT 92–98
[2017-04-24] MEDS: Sodium Chloride LOK Flush 10 mL Syringe IVFLUSH SCH ×3 (00:30→17:52)
[2017-04-24] MEDS: metroNIDAZOLE Inj 500 MG in IV Premix 1 EACH IV SCH ×2 (02:07→08:34)
--- NOTE | 2017-04-24 07:23 | PCM.PNSURG ---
Subjective Visit Information: Reason for Visit Colitis, Bright Red Blood Perirectum Surgery/Surgery Date Post-Op Day # Date of Admission: Apr 19, 2017 at 16:39 Hospital Day # Subjective: had some nausea and cramping yesterday with advancement of her diet to full liquid, afebrile, but her abd soreness is gone, started to have nonbloody BM's, feels weak Objective Objective Sitting up in a chair, awake No distress Abd: obese, but soft and nontender on exam Vital Sign- Last 8 Hours Date Time Temp Pulse Resp B/P Pulse Ox O2 Delivery O2 Flow Rate FiO2 04/24/17 06:43 36.9 74 16 160/73 94 Room Air 04/24/17 05:57 75 04/24/17 05:30 36.5 79 20 151/81 92 Room Air 04/24/17 01:06 36.9 73 16 166/73 96 Room Air Intake and Output- Last 8 Hour 04/24/17 Cumulative From/Thru 07:00 04/19/17 10:52 - 04/24/17 06:50 Intake Total 300 ml 78906 ml Output Total 750 ml 5450 ml Balance -450 ml 6783 ml Intake Oral 300 ml 2600 ml IV Total 9633 ml Output Urine Total 750 ml 5150 ml Stool Total 300 ml # Voids 9 # Bowel Movements 2 2 Result Diagram: 04/23/17 0840 04/23/17 0840 Assessment & Plan Impression L sided ischemic colitis Problems: Plan Continue IV abx Slow advancement of diet as tolerated Consider re-imaging with CT scan Resuscitation Status: CPR: Attempt Resuscitation ( and daughter are alternate decision makers) Cristino Shelton MD Apr 24, 2017 07:23
[2017-04-24] MEDS: Insulin LISPRO 300 Unit/3 mL Inj SUBQ SCH ×4 (08:00→22:00)
[2017-04-24] MEDS: Lisinopril 40 Tablet PO SCH (08:35)
--- NOTE | 2017-04-24 08:41 | PCM.PNMED ---
Subjective Date of Service Apr 24, 2017 Subjective abdominal pain improved nausea and vomiting yesterday with full liquid which included dairy products small non bloody BM yesterday Exam Vital Signs Vital Sign - Last Date Time Temp Pulse Resp B/P Pulse Ox O2 Delivery O2 Flow Rate FiO2 04/24/17 06:43 36.9 74 16 160/73 94 Room Air Intake and Output 04/23/17 04/23/17 04/24/17 Cumulative From/Thru 15:00 23:00 07:00 04/19/17 10:52 - 04/24/17 06:50 Intake Total 306 ml 729 ml 300 ml 00430 ml Output Total 850 ml 750 ml 5450 ml Balance 306 ml -121 ml -450 ml 6783 ml Intake Oral 620 ml 300 ml 2600 ml IV Total 306 ml 109 ml 9633 ml Output Urine Total 850 ml 750 ml 5150 ml Stool Total 300 ml # Voids 9 # Bowel Movements 0 2 2 Exam GEN- no apparent distress, sitting in bedside chair Resp- cleat to auscultation bilaterally CVS-irreg irreg abdomen- sodt , non tender, non distended, bowel sounds present EXT- no edema Lab and Diagnostics Result Diagram: 04/23/17 0840 04/23/17 0840 X-Rays, CTs and MRIs PROCEDURE: CT ABDOMEN AND PELVIS WITH CONTRAST ([id number]) INDICATIONS: vomiting, BRBPR IMPRESSION: 1. Abnormal transverse and descending colon consistent with colitis. There are scattered diverticula but no diverticulitis. Dictated by: Jimmy Arnett M.D. on 04/19/2017 at 15:09 Approved by: Jimmy Arnett M.D. on 04/19/2017 at 15:21 PROCEDURE: X-RAY ACUTE ABDOMINAL SERIES ([id number]) INDICATIONS: NAUSEA, VOMITTING, DIARRHEA IMPRESSION: The appearance of the bowel gas pattern is abnormal but more consistent with diarrhea evaluate for obstruction. No dilated loops are seen. 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
[2017-04-24 08:42] LABS: BASOPHILS % (AUTO) 0.2 % (0-3); EOSINOPHILS % (AUTO) 1.6 % (0-5); MONOCYTES % (AUTO) 10.9 % (4-12); Mean Corpuscular Hemoglobin 29.2 pg (27.0-35.0); Mean Corpuscular Volume 87.7 fL (81-100); NEUTROPHILS % (AUTO) 70.6 % (40-74); Platelet Count 193 bil/L (150-400)
[2017-04-24] MEDS: 0.9% Sodium Chloride 1,000 ML IV SCH ×2 (09:13→17:52)
--- NOTE | 2017-04-24 11:19 | NUR ---
Social Work- Readiness for Discharge Data: EMR reviewed. Pt is a 72 year old female on day 5 of hospitalization for colitis, bright red blood perirectum per H&P. Pt is not medically stable for discharge, anticipate discharge tomorrow. Pt's diet was advanced yesterday and resulted in nausea and vomiting. Pt to retry full liquids dairy free and advance to soft low fiber prior to discharge. SW met with pt and at bedside regarding discharge, pt agreeable and excited to return home tomorrow. Pt denied any questions or concerns about discharge at this time. Pt has been observed ambulating in the hallway during this admission. Pt to discharge home with spouse to transport via POV. No discharge needs identified at this time. SW will continue to follow. Assessment: Pt who is independent at baseline. Plan: Pt to discharge home with spouse to transport via POV. No discharge needs identified at this time. SW will continue to follow. MILAN Joseph
--- NOTE | 2017-04-24 13:49 | PCM.PNMED ---
Subjective Date of Service Apr 24, 2017 Subjective pt denied having bloody stools but diarrhea continued back on full liquid diet per GI today, pt seemed to tolerate AM denied n/v, has mild discomfort on belly ambulate well, remained afebrile, HD stable overnight Exam Vital Signs Vital Sign - Last Date Time Temp Pulse Resp B/P Pulse Ox O2 Delivery O2 Flow Rate FiO2 04/24/17 06:43 36.9 74 16 160/73 94 Room Air Intake and Output 04/23/17 04/23/17 04/24/17 Cumulative From/Thru 15:00 23:00 07:00 04/19/17 10:52 - 04/24/17 06:50 Intake Total 306 ml 729 ml 300 ml 25439 ml Output Total 850 ml 750 ml 5450 ml Balance 306 ml -121 ml -450 ml 6783 ml Intake Oral 620 ml 300 ml 2600 ml IV Total 306 ml 109 ml 9633 ml Output Urine Total 850 ml 750 ml 5150 ml Stool Total 300 ml # Voids 9 # Bowel Movements 0 2 2 Exam NAD, comfortably laying down on the bed no JVD, MMM, no LAD RRR, nl s1, s2 no mrg CTAB, no w,c S,ND,NT,normoactive BS+ warm, no edema, pulses 2/2 IVs and Medications Medications Reviewed: Medications were reviewed in detail Lab and Diagnostics Result Diagram: 04/23/17 0840 04/23/17 0840 X-Rays, CTs and MRIs PROCEDURE: CT ABDOMEN AND PELVIS WITH CONTRAST ([id number]) INDICATIONS: vomiting, BRBPR IMPRESSION: 1. Abnormal transverse and descending colon consistent with colitis. There are scattered diverticula but no diverticulitis. Dictated by: Jimmy Arnett M.D. on 04/19/2017 at 15:09 Approved by: Jimmy Arnett M.D. on 04/19/2017 at 15:21 PROCEDURE: X-RAY ACUTE ABDOMINAL SERIES ([id number]) INDICATIONS: NAUSEA, VOMITTING, DIARRHEA IMPRESSION: The appearance of the bowel gas pattern is abnormal but more consistent with diarrhea evaluate for obstruction. No dilated loops are seen. Assessment & Plan acute, active Ischemic colitis, POA, CT showed colitis on transverse and descending colon. Flex sig by on 04/20 showed necrotic and edematous mucosa suggestive of ischemic colitis. 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 No stenosis of the SMA or VIJAY. -appreciate GI follow up -currently liquid diet, advance as tolerate per GI. avoid dairy product -zofran prn for nausea, vomiting -moderate stenosis of celiac axis doesn't seem to contribute her sx, no urgent indication for intervention at the moment. - recommended to continue abx, currently Levaquin/flagyl chronic, stable A fib RVR. Hx of CAD , s/p CABG, Hyperlipidemia, pt discussed benefits and risks of full dose AC, deferred to release manager, continue aspirin. HTN, 140-160s, continue current ACEI Diabetes mellitus type 2, c/w Accuchecks, ISS, DM diet GERD, stable w/o ppi, h2 gordon Hypothyroidism, c/w home meds GI Prophylaxis: Other VTE Mechanical Devices: Intermittant Pneumatic CD Resuscitation Status: CPR: Attempt Resuscitation ( and daughter are alternate decision makers) Time spent 35min Juancarlos Choudhary MD Apr 24, 2017 08:24
--- NOTE | 2017-04-24 16:15 | NUR ---
GI Reports 3 "watery" brown BMs this am, none this afternoon. Denies blood or mucous in stool. Denies abd pain, cramping and nausea. At this time, states abd is "rumbly." Bowel tones present in all quadrants. Tolerates clears and full liquids. Strict non-dairy. Ambulates independently in halls with steady gait.
[2017-04-24] MEDS ORDERED: levoFLOXacin 500 mg Tablet PO SCH (20:30)
--- NOTE | 2017-04-24 23:42 | NUR ---
GI BT's hyperactive, denies nausea or pain, tolerating PO on nights. BM with several very small fede, no visual blood. Patients daily weight is up. IV fluids SL'd - encouraged continued PO intake. Tele: Sinus; Hr 68.
[2017-04-25 00:24] VITALS: BP 160/55; PULSE 67; RESP 18; O2SAT 97
[2017-04-25] MEDS: Sodium Chloride LOK Flush 10 mL Syringe IVFLUSH SCH ×2 (00:35→10:03)
[2017-04-25] MEDS: 0.9% Sodium Chloride 1,000 ML IV SCH (04:25)
[2017-04-25 05:03] VITALS: PULSE 60
[2017-04-25 05:10] VITALS: BP 160/58; PULSE 70; RESP 20; O2SAT 99
[2017-04-25 06:13] LABS: BASOPHILS % (AUTO) 0.4 % (0-3); EOSINOPHILS % (AUTO) 3.2 % (0-5); MONOCYTES % (AUTO) 11.6 % (4-12); Mean Corpuscular Hemoglobin 29.1 pg (27.0-35.0); Mean Corpuscular Volume 88.5 fL (81-100); NEUTROPHILS % (AUTO) 56.4 % (40-74); Platelet Count 192 bil/L (150-400)
[2017-04-25 07:19] LABS: Magnesium 1.8 mg/dL (1.6-2.6); Phosphorus 3.3 mg/dL (2.5-4.9)
[2017-04-25 08:00] VITALS: PULSE 65
[2017-04-25] MEDS: Insulin LISPRO 300 Unit/3 mL Inj SUBQ SCH ×2 (08:00→12:00)
[2017-04-25] MEDS ORDERED: Magnesium Sulf 2 Gm/50mL Water 2 GM in IV Premix 1 EACH IV ONE (08:05)
[2017-04-25] MEDS ORDERED: Potassium Chloride 20 mEq SR Tablet PO ONE (08:05)
[2017-04-25] MEDS ORDERED: METR500T PO (09:27)
[2017-04-25] MEDS ORDERED: LEVO500T16 PO (09:27)
[2017-04-25] MEDS: Lisinopril 40 Tablet PO SCH (10:03)
[2017-04-25 10:10] VITALS: BP 158/66; PULSE 72; RESP 18; O2SAT 98
--- NOTE | 2017-04-25 10:33 | PCM.PNMED ---
Subjective Date of Service Apr 25, 2017 Subjective tolerated regular diet for dinner last night and for breakfast this morning denies abdominal pain no further rectal bleeding passing flatus Exam Vital Signs Vital Sign - Last Date Time Temp Pulse Resp B/P Pulse Ox O2 Delivery O2 Flow Rate FiO2 04/25/17 10:10 36.6 72 18 158/66 98 Room Air Intake and Output 04/24/17 04/24/17 04/25/17 Cumulative From/Thru 15:00 23:00 07:00 04/19/17 10:52 - 04/25/17 06:02 Intake Total 3256 ml 914 ml 17589 ml Output Total 200 ml 250 ml 5900 ml Balance 3056 ml 664 ml 73939 ml Intake Oral 1120 ml 360 ml 4080 ml IV Total 2136 ml 554 ml 26909 ml Output Urine Total 200 ml 250 ml 5600 ml Stool Total 300 ml # Voids 3 3 15 # Bowel Movements 4 2 8 Exam Gen- no apparent distress, sitting in bedside chair HEENT- no icterus no pallor Resp- clear to auscultation bilaterally CVS-irreg irreg abdomen- soft, non distended, non tender, bowel sounds present ext-trace edema Lab and Diagnostics Result Diagram: 04/25/17 0540 04/25/17 0540 X-Rays, CTs and MRIs PROCEDURE: CT ABDOMEN AND PELVIS WITH CONTRAST ([id number]) INDICATIONS: vomiting, BRBPR IMPRESSION: 1. Abnormal transverse and descending colon consistent with colitis. There are scattered diverticula but no diverticulitis. Dictated by: Jimmy Arnett M.D. on 04/19/2017 at 15:09 Approved by: Jimmy Arnett M.D. on 04/19/2017 at 15:21 PROCEDURE: X-RAY ACUTE ABDOMINAL SERIES ([id number]) INDICATIONS: NAUSEA, VOMITTING, DIARRHEA IMPRESSION: The appearance of the bowel gas pattern is abnormal but more consistent with diarrhea evaluate for obstruction. No dilated loops are seen. Assessment & Plan Ischemic colitis -clinically improbved as tolerating diet and without abdominal pain, diarrhea or rectal bleeding -ok to discharge from GI standpoint -would give her PO flagyl and levaquin for 3 days as that would complete 10 days of antibiotics -follow up with me in GI clinic in 2-4 weeks -my office will call her to schedule appointment -also recommend she follow up with her commercial insurance underwriter GI Prophylaxis: Other VTE Mechanical Devices: Intermittant Pneumatic CD Resuscitation Status: CPR: Attempt Resuscitation ( and daughter are alternate decision makers) Robb Loyola MD Apr 25, 2017 10:32
--- NOTE | 2017-04-25 11:11 | PCM.DIMED ---
Discharge Instructions Date of Service Apr 25, 2017 Dates of Hospitalization Apr 19, 2017 at 16:39 Discharge Diagnosis Discharge Diagnosis Acute ischemic colitis Medication Instructions Additional med instructions Please take Flagyl and Levaquin oral antibiotics for 3 more days Diet Discharge Diet: No restrictions Activity Discharge Activity: No restrictions Patient Instructions Patient Instructions You were hospitalized with bloody stools, abdominal pain. You were found to have a condition called ischemic colitis, part of your bowels campbell were not perfused with blood supplies well. You were treated supportively. You also received antibiotics for possible bowel infection. Please follow medicine instruction as above Please follow up with in 2-3weeks, You will be reached from his office. Follow-up Provider: Robb Loyola MD Follow-up with PCP in: 2 weeks Juancarlos Choudhary MD Apr 25, 2017 11:10
--- NOTE | 2017-04-25 11:29 | PCM.PNSURG ---
Subjective Date of Service: Apr 25, 2017 Date of Service: Apr 25, 2017 Visit Information: Reason for Visit Colitis, Bright Red Blood Perirectum Surgery/Surgery Date Post-Op Day # Date of Admission: Apr 19, 2017 at 16:39 Hospital Day #7 Subjective: Patient reports feeling better today with no nausea or vomiting for 1.5 days now and tolerating diet. Severe abdominal pain is gone and subjective "soreness " is diminishing. She reports adequate bowel function with no more blood noted. Denies fevers, chills, chest pain and shortness of breath. Postop General: No Shortness of Breath, No Chest Pain Gastrointestinal: Tolerating Oral Feedings, No N/V, Passing Stool Objective Objective well appearing elderly female in no apparent distress. Pleasant, conversant. Vital Sign- Last 8 Hours Date Time Temp Pulse Resp B/P Pulse Ox O2 Delivery O2 Flow Rate FiO2 04/25/17 10:10 36.6 72 18 158/66 98 Room Air 04/25/17 08:00 65 04/25/17 05:10 36.4 70 20 160/58 99 Room Air 04/25/17 05:03 60 Intake and Output- Last 8 Hour 04/25/17 Cumulative From/Thru 07:00 04/19/17 10:52 - 04/25/17 06:02 Intake Total 914 ml 47728 ml Output Total 250 ml 5900 ml Balance 664 ml 31448 ml Intake Oral 360 ml 4080 ml IV Total 554 ml 14783 ml Output Urine Total 250 ml 5600 ml Stool Total 300 ml # Voids 3 15 # Bowel Movements 2 8 General: Alert, Cooperative, No Acute Distress Lungs: Clear to Auscultation Heart: Regular Rate/Rhythm Abdomen: Soft, Normoactive bowel tones, Other (mild tenderness on left abdomen. ) Result Diagram: 04/25/17 0540 04/25/17 0540 Diagnostics: WBC 7500 Afebrile Assessment & Plan Impression Left sided ischemic colitis, improved with abx Abdominal pain diminishing and nausea/vomiting corrected Problems: (1) Colitis Status: Acute ICD Code: K52.9 Plan May discharge from surgical perspective. Continue levaquin and flagyl upon discharge for 3 days. Resuscitation Status: CPR: Attempt Resuscitation ( and daughter are alternate decision makers) Severiano Michaels PA-C Apr 25, 2017 11:29
--- NOTE | 2017-04-25 11:40 | NUR ---
Social Work: Discharge D: EMR reviewed. Pt is on day 6 of hospitalization. Per MD in AM multi-disciplinary rounds, pt is medically stable and will discharge today. Pt agreeable and excited to return home today. Pt denied any questions or concerns about discharge at this time. Pt has been observed ambulating in the hallway during this admission. Pt to discharge home with spouse to transport via POV. Assessment: Pt who is independent at baseline. SW does not anticipate any discharge needs at this time but will continue to follow if needs arise. A: Pt who is independent at baseline. P: Pt to discharge home with spouse via POV. SW does not anticipate any discharge needs at this time but will continue to follow if needs arise. MILAN Adams
--- NOTE | 2017-04-25 12:41 | NUR ---
Discharge Orders for discharge were received. The patient was made aware of the plans for discharge and was agreeable to go. The patient was given information and teaching on her diagnosis and treatment, signs and symptoms to be aware of, follow up instructions and scripts and teaching for new medications. The patient signified understanding of this information, verified using the teach back method. The patient's asymptomatic IV was then removed intact and the patient was dressed in her own clothing. The patient's belongings were gathered and the patient ambulated into a wheelchair and was wheeled to the main entrance, where she ambulated into an awaiting private family vehicle. At the time of discharge the patient was alert and oriented, with no complaint of shortness of breath, chest pain, nausea, blood in stool or other difficulty.
--- NOTE | 2017-04-25 22:40 | PCM.DC.MED ---
Discharge Summary Date of Service Apr 25, 2017 Dates of Hospitalization Date of Hospital Admission Apr 19, 2017 at 16:39 Date of Discharge: Apr 25, 2017 Providers: Admitting Physician: Carol Harris DO Primary Care Physician: Melissa Michaels Attending Physician: Carol Harris DO Diagnosis at Time of Discharge Diagnosis at Time of Discharge acute dx Acute ischemic colitis, chronic dx A fib RVR. Hx of CAD , s/p CABG, Hyperlipidemia, HTN, Diabetes mellitus type 2, GERD, Hypothyroidism, Consultations GI Gen surg Procedures XRay, CTs & MRIs PROCEDURE: CT ABDOMEN AND PELVIS WITH CONTRAST ([id number]) INDICATIONS: vomiting, BRBPR IMPRESSION: 1. Abnormal transverse and descending colon consistent with colitis. There are scattered diverticula but no diverticulitis. Dictated by: Jimmy Arnett M.D. on 04/19/2017 at 15:09 Approved by: Jimmy Arnett M.D. on 04/19/2017 at 15:21 PROCEDURE: X-RAY ACUTE ABDOMINAL SERIES ([id number]) INDICATIONS: NAUSEA, VOMITTING, DIARRHEA IMPRESSION: The appearance of the bowel gas pattern is abnormal but more consistent with diarrhea evaluate for obstruction. No dilated loops are seen. Brief History HPI by on 04/19 This is a pleasant 72-year-old female with past medical history of diabetes hypothyroidism, hyperlipidemia, atrial fibrillation, GERD, CAD status post CABG , osteoarthritis mild aortic stenosis, anxiety, depression is presenting today with rectal bleeding that has been ongoing since then 9 AM this morning she says that she was sitting on the toilet and she did not even know what was going on, she did not look at the toilet as she became diaphoretic. EMT came and got her she does not know if there was any blood at that time. She is describing abdominal cramping that is going across her belly button into her sigmoid area/left lower quadrant. She says that the pain is intermittent and vague burning in nature. And also crampy. She says that she had similar episode a year ago and at which time she was admitted to [facility] but she did not have as much blood at that time. She denied any sick contacts or having history of C. difficile. She says ever since he came to the hospital she had at least 4 bloody stools and she says now she is having clots in her bowel movements. She was very nStates auseated but currently not having emesis because they gave her medication the ER. She denies hematemesis. She says that she is feeling weak but not dizzy. She states that her atrial fibrillation happened once only after her heart surgery back in 2010 has resolved since then and she did not have to be anticoagulated. She has taken her BP medications this morning but feels that as she threw up so much they may not have remained in her system In the ER lactic acid was elevated at [address] with contrast showed transverse and descending colon colitis as well as diverticulosis, abdominal x- ray showed diarrhea, and a Echo from November 2014 showed 60% to 70% ejection fraction, left atrial dilation that is considered to be moderate. In the ER white count is elevated at 12.3 EKG showed left atrial dilation. Lipase is slightly elevated at 68 urine was negative for infection. Hemoglobin is 13.1. patient states that she had a colonoscopy in our system 5-6 years ago she was told she had polyps but that no other problems were found. OF note, patient recently had a bladder infection that was treated with antibiotics. She denies recent sudden weight loss/weight gain 2013 Colonoscopy [facility] record is as below: 1. Moderate diverticulosis sigmoid colon. 2. Small internal hemorrhoids. 3. History of tubular adenoma and transverse colon. 4. Repeat surveillance colonoscopy to be considered in five years. When she arrived on the [facility] floor, she was hypertensive SBP>200, LAZ=653. Hospital Course acute dx Ischemic colitis, POA, CT showed colitis on transverse and descending colon. Flex sig by on 04/20 showed necrotic and edematous mucosa suggestive of ischemic colitis. 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 No stenosis of the SMA or VIJAY. Patient was monitored closely with gen surg. . Diet was slowly advanced, eventually tolerated general diet without sx, deemed safe for d/c to home. Moderate stenosis of celiac axis on MRA didn't seem to contribute her sx, no urgent indication for intervention at the moment. Although stool PCR were negative, probable intraabdominal infectious process, pt was started on Levaquin /flagyl. Plan to continue 3more days. chronic dx A fib RVR. Hx of CAD , s/p CABG, Hyperlipidemia, pt discussed benefits and risks of full dose AC, deferred to channel installer, continued aspirin. HTN, 140-160s, continued current ACEI Diabetes mellitus type 2, c/w Accuchecks, ISS, DM diet GERD, stable w/o ppi, h2 gordon Hypothyroidism, c/w home meds Exam Vital Signs (Last) Date Time Temp Pulse Resp B/P Pulse Ox O2 Delivery O2 Flow Rate FiO2 04/25/17 10:10 36.6 72 18 158/66 98 Room Air Exam NAD, comfortably laying down on the bed no JVD, MMM, no LAD RRR, nl s1, s2 no mrg CTAB, no w,c S,ND,NT,normoactive BS+ warm, no edema, pulses 2/2 Test 04/19/17 12:43 04/19/17 13:55 04/20/17 18:50 04/21/17 06:18 Prothrombin Time 10.4sec (8.1-12.5) Prothromb Time International Ratio 0.97ratio Lipase 68U/L (13-60) Urine Color Yellow (YELLOW) Urine Appearance Clear (CLEAR,HAZY) Urine pH 5.5 (5.0-8.0) Urine Specific [place] <1.005 (1.003-1.035) Urine Protein Negativemg/dL (NEG,TRACE) Urine Glucose (UA) Negativemg/dL (NEGATIVE) Urine Ketones Negativemg/dL (NEGATIVE) Urine Occult Blood Trace (NEGATIVE) Urine Nitrite Negative (NEGATIVE) Urine Bilirubin Negative (NEGATIVE) Urine Urobilinogen Normalmg/dL (NORMAL) Urine Leukocyte Esterase Negative (NEGATIVE) Urine RBC 0-2/hpf (0-2) Urine WBC 0-5/hpf (0-5) Urine Epithelial Cells Few/hpf (NONE-MOD) Urine Crystals None seen (NONE SEEN) Urine Bacteria Few/hpf (NONE-FEW) Urine Hyaline Casts None/lpf (NONE) Urine Granular Casts None seen (NONE SEEN) Urine Waxy Casts None seen (NONE SEEN) Urine Red Blood Cell Casts None seen (NONE SEEN) Urine White Blood Cell Casts None seen (NONE SEEN) Urine Mucus None seen (None Seen) Urine Trichomonas None seen (NONE SEEN) Urine Yeast None (NONE SEEN) Urinalysis Comment None Urine Culture Reflexed Not indicated Lactate Dehydrogenase 153U/L (100-190) Lactic Acid Level 0.7mmol/L (0.4-2.0) Test 04/21/17 19:55 04/25/17 05:40 Troponin T < 0.010ug/L (0.0-0.011) White Blood Count 7.5th/mm3 (3.8-10.1) Red Blood Count 3.47mil/mm3 (3.90-5.20) Hemoglobin 10.1g/dL (12.0-15.6) Hematocrit 30.7% (35.0-46.0) Mean Corpuscular Volume 88.5fL (81-100) Mean Corpuscular Hemoglobin 29.1pg (27.0-35.0) Mean Corpuscular Hemoglobin Concent 32.9% (32.0-37.0) Red Cell Distribution Width 12.8% (12.3-15.4) Platelet Count 192bil/L (150-400) Neutrophils (%) (Auto) 56.4% (40-74) Lymphocytes (%) (Auto) 25.6% (14-46) Monocytes (%) (Auto) 11.6% (4-12) Eosinophils (%) (Auto) 3.2% (0-5) Basophils (%) (Auto) 0.4% (0-3) Sodium Level 142mEq/L (134-144) Potassium Level 3.3mEq/L (3.5-5.2) Chloride Level 107mEq/L (97-108) Carbon Dioxide Level 22mmol/L (18-29) Blood Urea Nitrogen 4mg/dL (8-27) Creatinine 0.62mg/dL (0.57-1.00) Estimat Glomerular Filtration Rate 136mL/min (>59) Glucose Level 118mg/dL (60-99) Calcium Level 8.3mg/dL (8.5-10.1) Phosphorus Level 3.3mg/dL (2.5-4.9) Magnesium Level 1.8mg/dL (1.6-2.6) Total Bilirubin 0.2mg/dL (0.0-1.2) Aspartate Amino Transf (AST/SGOT) 14U/L (0-50) Alanine Aminotransferase (ALT/SGPT) 9U/L (0-32) Alkaline Phosphatase 46U/L (25-165) Total Protein 5.1g/dL (6.4-8.4) Albumin 2.8g/dL (3.4-5.0) Procalcitonin 0.08ng/mL (0.00-0.08) Discharge Medications Discharge Medications Aspirin Chew (Aspirin Chew) 81 Mg Tab.chew 81 MG PO DAILY Prescribed by: JULISA CISNEROS MD Cholecalciferol (Vitamin D3) (Vitamin D3) 2,000 Unit Capsule 2,000 UNIT PO DAILY (Reported) Cyanocobalamin (Vitamin B-12) (Vitamin B12) 5,000 Mcg Tab.rapdis 5,000 MCG PO DAILY (Reported) Levofloxacin (Levaquin) 500 Mg Tablet 500 MG PO Q24H Prescribed by: JUANCARLOS SUMNER MD Levothyroxine (Levothyroxine) 75 Mcg Tablet 75 MCG PO AM (Reported) Lisinopril (Lisinopril) 40 Mg Tablet 40 MG PO DAILY (Reported) Metformin ER (Metformin ER) 500 Mg Tablet 500 MG PO DAILYWD (Reported) Metoprolol Succinate ER (Metoprolol Succinate ER) 50 Mg Tab.er.24h 50 MG PO AM ( Reported) Metronidazole (Flagyl) 500 Mg Tablet 500 MG PO Q8 Prescribed by: JUANCARLOS SUMNER MD Omeprazole (Omeprazole) 20 Mg Capsule.dr 20 MG PO DAILY (Reported) Rosuvastatin Calcium (Crestor) 10 Mg Tablet 5 MG PO HS (Reported) As needed Fluticasone Propionate (Fluticasone Propionate) 50 Mcg/Actuation [place].susp 15.8 ML NS PRN nasal congestion (Reported) Polyethylene Glycol 3350 (Miralax) 17 Gm Powd.pack 17 GM PO DAILY PRN PRN For Constipation (Reported) Additional med instructions Please take Flagyl and Levaquin oral antibiotics for 3 more days Followup Plan Disposition: home Discharge Diet: No restrictions Discharge Activity: No restrictions Patient Instructions You were hospitalized with bloody stools, abdominal pain. You were found to have a condition called ischemic colitis, part of your bowels campbell were not perfused with blood supplies well. You were treated supportively. You also received antibiotics for possible bowel infection. Please follow medicine instruction as above Please follow up with in 2-3weeks, You will be reached from his office. Follow-up Provider: Robb Loyola MD Follow-up with PCP in: 2 weeks Time spent 65min Juancarlos Sumner MD Apr 25, 2017 22:40
== END 2017-04-25 12:34 | disposition home or self-care (01) | DRG 395 ==
LOC: EDBD 10:40 → EDUNIT# 10:40 → SED 10:40 → OSC 16:39
PROVIDERS: ADMIT Family Medicine; ATTEND Family Medicine
PROC: 0DJD8ZZ Inspection of Lower Intestinal Tract, Via Natural or Artificial Opening Endoscopic (ICD-10-PCS; principal; 2017-04-20 16:00)
DX: K55.039 Acute (reversible) ischemia of large intestine, extent unspecified (principal); I16.0 Hypertensive urgency; I25.10 Atherosclerotic heart disease of native coronary artery without angina pectoris; E11.9 Type 2 diabetes mellitus without complications; E03.9 Hypothyroidism, unspecified; K21.9 Gastro-esophageal reflux disease without esophagitis; I48.0 Paroxysmal atrial fibrillation; E78.5 Hyperlipidemia, unspecified; F41.8 Other specified anxiety disorders; Z79.01 Long term (current) use of anticoagulants; Z79.82 Long term (current) use of aspirin; Z95.1 Presence of aortocoronary bypass graft